=== PATIENT | female | born 1975 | race Caucasian/White ===

== ENCOUNTER 2018-03-18 13:38 | Emergency (ER) | payer MEDICAID, OTHER ==
[2016-05-15 08:53] VITALS: Wt 59.2 kg
[~2018-03-18 13:38] MED LIST: ACAM333T6 PO; ACE325 PO; ACET-2031 PO; AMI10 PO; ARIP2TAB9 PO; AZI250 PO; BENZ1 PO; CEP500 PO; CIP500 PO; CIPR250S2 PO; CITA-156 PO; CLA500 PO; CLI150 PO; CYC10 PO; CYCL10TA29 PO; DIA5 PO; DIC10 PO; DICL-192; DIPH-740 PO; DIV250 PO; DIVA250T83 PO; DOC100 PO; DOX100 PO; DOXE75CA PO; DOXY-179 PO; DOXY150T6 PO; DUL20 PO; DUL30 PO; DULO60CA51 PO; DULO60CA56 PO; DULO60CA7; FURO-1 PO; GAB300 PO; GABA-549 PO; HYD2 PO; HYDR-2946 PO; HYDR-3083 PO; HYDR-385; HYDR-385 PO; HYDR1LIQ PO; HYDR25CA PO; HYDR25CA84 PO; HYDR2TAB41 PO; HYDR2TAB42 PO; HYDRO25 PO; IBU600 PO; IBU800 PO; IBUP-1618 PO; IBUP600T22 PO; IBUP800T37 PO; KET10 PO; LEVO750T25 PO; LIB PO; LID5T TOP; LITH300C45 PO; LOR1 PO; LOR5 PO; LOR5/325 PO; LOR75 PO; LORA-1221 PO; MAG-156 PO; MAGIC; MAGIC PO; MEL3 PO; MELO-205; MELO-205 PO; MET800 PO; META400T PO; META800T18 PO; METH-278; METH4TAB57 PO; METHO500 PO; MOX400 PO; MULT-820 PO; MULT-865 PO; MULT1TAB54 PO; NAL50 PO; NAP250 PO; NAP500; NAP500 PO; NAPR-1043 PO; NAPR220C12 PO; NAPR500T31 PO; NAPROXIN; NICO4LOZ PO; NICO4LOZ35 BC; NIT100 PO; NITR-105 PO; NO CURRENT MEDS; NOR5/325 PO; OMEP-218 PO; OMEP40CA79 PO; OND4 PO; ONDA4TAB PO; ONDA8TAB94 PO; OXA600 PO; OXC300 PO; OXYC-689 PO; OXYC1TAB54 PO; OXYC5TAB65 PO; PAN40 PO; PANT40TA13 PO; PER; PER PO; PHEN100 PO; PHENA200 PO; POTA20TA85 PO; PRE20 PO; PRE5 PO; PRED-314 PO; PRED20TA6 PO; PRO25 PO; PROM-110 PO; PROM12.546 PO; RIS1 PO; RIZA10TA22 PO; SUMA50TA35; TIZ4 PO; TIZA-1; TIZA2CAP3 PO; TRA50 PO; TRAM-420 PO; TRAM-627 PO; TRAM100T22 PO; TRAM100T30 PO; TRAZ50TA34 PO; [UNRECOGNIZED DRUG - CODE] PO; [UNRECOGNIZED DRUG - CODE] TP
[2018-03-18] MEDS ORDERED: NS(*) 0.9% 1000 ML BAG 1,000 ML IV ONE (14:02)
[2018-03-18] MEDS ORDERED: KETOROLAC 30 MG/ML VIAL IVP ONE (14:05)
[2018-03-18] MEDS ORDERED: ONDANSETRON 4 MG/2 ML VIAL IVP ONE (14:05)
[2018-03-18] MEDS ORDERED: PHENAZOPYRIDINE 200 MG TAB PO ONE (14:05)
[2018-03-18 14:33] LABS: PLATELET COUNT, AUTOMATED 321 K/uL (150-450)
[2018-03-18] MEDS ORDERED: fentaNYL CITR 100 MCG/2 ML AMP IVP ONE ×2 (14:35→17:00)
[2018-03-18] MEDS ORDERED: IOPAMIDOL 76% 75 ML INFUS BTL 75 ML ONE (14:35)
--- NOTE | 2018-03-18 15:05 | ER Report ---
History and Physical Time Seen By MD: 14:56 Hx. of Stated Complaint: RIGHT FLANK/GROIN PAIN SINCE YESTERDAY. (KAY SORTO MD) HPI/ROS CHIEF COMPLAINT: Right flank and groin pain HISTORY OF PRESENT ILLNESS: Patient is a 42-year-old female who reports right- sided flank pain and groin pain and some suprapubic discomfort past 2 weeks that is episodic. Patient states this felt similar to her prior urinary tract infections. She had some medications at home and drink cranberry juice and took a Pyridium. Patient denies any vaginal discharge. She has had a hysterectomy and left oophorectomy. Patient denies any fevers or chills. Denies any abdominal trauma. REVIEW OF SYSTEMS: Constitutional: No fever, no chills. Eyes: No discharge. ENT: No sore throat. Cardiovascular: No chest pain, no palpitations. Respiratory: No cough, no shortness of breath. Gastrointestinal: Right-sided flank pain, right groin pain and suprapubic pain, nausea Genitourinary: No hematuria. Musculoskeletal: No back pain. Skin: No rashes. Neurological: No headache. (KAY SORTO MD) Allergies: Coded Allergies: Penicillins (Verified Allergy, Intermediate, FELT LIKE SKIN WAS ON FIRE, 03/18/18) Sulfa (Sulfonamide Antibiotics) (Verified Allergy, Intermediate, RED BLOTCHES, 03/18/18) Home Meds Active Scripts Hydrocodone Bit/Acetaminophen (HYDROCODON-ACETAMINOPHEN 5-325) 1 Each Tablet, 1 EACH PO Q4-6H PRN for PAIN, #10 TAB Prov:AZUCENAGUERASANDRA Denisse DO 03/18/18 Discontinued Reported Medications Nicotine Polacrilex (NICOTINE LOZENGE) 4 Mg Lozenge, 4 MG BC Q1-2H PRN for NICOTINE REPLACEMENT, LOZENGE 05/19/16 Multivitamin (DAILY MULTIPLE VITAMIN) 1 Each Tablet, 1 EACH PO DAILY 05/19/16 Trazodone Hcl (TRAZODONE HCL) 50 Mg Tablet, 50 MG PO QHS 05/19/16 Ibuprofen (IBUPROFEN) 600 Mg Tablet, 1 TAB PO Q6H, TAB 05/14/16 Duloxetine Hcl (Cymbalta) 60 Mg Capsule.dr, 60 MG PO DAILY, 0 Refills 10/04/12 Past Medical/Surgical History Noncontributory towards this chief complaint (KAY SORTO MD) Hx Smoking: Yes Smoking Status: Heavy Tobacco Smoker Exposure to Second Hand Smoke?: Yes Hx Substance Use Disorder: Yes (METH; WEED) Hx Alcohol Use: No (KAY SORTO MD) Constitutional Vital Sign - Last 24 Hours 03/18/18 13:50 Temp 98.7 Pulse 84 Resp 18 B/P (MAP) 150/92 Pulse Ox 95 O2 Delivery Room Air (LAURORA,SANDRA V DO) Physical Exam General Appearance: The patient is alert, has no immediate need for airway protection and no current signs of toxicity. Eyes: Pupils equal and round no injection. Respiratory: Chest is non tender, lungs are clear to auscultation. Cardiac: regular rate and rhythm Gastrointestinal: Abdomen is noted for tenderness in the right quadrant and groin area without mass. There is also right-sided CVA tenderness. Musculoskeletal: Neck: Neck is supple and non tender. Extremities have full range of motion and are non tender. Skin: No rashes or lesions. (KAY SORTO MD) Medical Decision Making Data Points Result Diagram: 03/18/18 1402 03/18/18 1402 Laboratory Hematology Test 03/18/18 13:47 03/18/18 14:02 Urine Color Yellow Urine Clarity Clear Urine pH 7.0 pH (4.8-9.5) Urine Specific [place] 1.014 Urine Protein Negative mg/dL (NEGATIVE) Urine Glucose (UA) Negative mg/dL (NEGATIVE) Urine Ketones Negative mg/dL (NEGATIVE) Urine Blood Negative (NEGATIVE) Urine Nitrite Negative (NEGATIVE) Urine Bilirubin Negative (NEGATIVE) Urine Urobilinogen Negative mg/dL (0.2-1.9) Urine Leukocyte Esterase Negative (NEGATIVE) Urine RBC 2 /HPF (0-2/HPF) Urine WBC 1 /HPF (0-5/HPF) Urine Squamous Epithelial Cells Many /LPF (</=FEW) Urine Bacteria Negative /HPF (NONE-FEW) Urine Mucus Few /HPF (NONE-FEW) Red Blood Count 4.86 M/uL (4.17-5.56) Mean Corpuscular Volume 94.0 fL (80.0-96.0) Mean Corpuscular Hemoglobin 32.0 pg (26.0-33.0) Mean Corpuscular Hemoglobin Concent 34.0 g/dL (32.0-36.0) Red Cell Distribution Width 13.6 % (11.5-14.5) Mean Platelet Volume 8.7 fL (7.2-11.1) Neutrophils (%) (Auto) 68.1 % (39.4-72.5) Lymphocytes (%) (Auto) 21.3 % (17.6-49.6) Monocytes (%) (Auto) 7.5 % (4.1-12.4) Eosinophils (%) (Auto) 1.8 % (0.4-6.7) Basophils (%) (Auto) 1.3 % (0.3-1.4) Nucleated RBC Relative Count (auto) 0.0 /100WBC Neutrophils # (Auto) 4.5 K/uL (2.0-7.4) Lymphocytes # (Auto) 1.4 K/uL (1.3-3.6) Monocytes # (Auto) 0.5 K/uL (0.3-1.0) Eosinophils # (Auto) 0.1 K/uL (0.0-0.5) Basophils # (Auto) 0.1 K/uL (0.0-0.1) Nucleated RBC Absolute Count (auto) 0.00 K/uL Sodium Level 140 mmol/L (137-145) Potassium Level 4.2 mmol/L (3.5-5.0) Chloride Level 107 mmol/L (98-107) Carbon Dioxide Level 22 mmol/L (22-31) Blood Urea Nitrogen 11 mg/dl (7-18) Creatinine 0.40 mg/dl (0.52-1.04) Glomerular Filtration Rate Calc > 60.0 Random Glucose 91 mg/dl (75-110) Calcium Level 8.8 mg/dl (8.4-10.2) Total Bilirubin 0.2 mg/dl (0.2-1.3) Aspartate Amino Transf (AST/SGOT) 58 U/L (0-35) Alanine Aminotransferase (ALT/SGPT) 47 U/L (0-56) Alkaline Phosphatase 67 U/L (0-126) Total Protein 6.7 g/dl (6.3-8.2) Albumin 4.1 g/dl (3.5-5.0) Chemistry Test 03/18/18 13:47 03/18/18 14:02 Urine Color Yellow Urine Clarity Clear Urine pH 7.0 pH (4.8-9.5) Urine Specific [place] 1.014 Urine Protein Negative mg/dL (NEGATIVE) Urine Glucose (UA) Negative mg/dL (NEGATIVE) Urine Ketones Negative mg/dL (NEGATIVE) Urine Blood Negative (NEGATIVE) Urine Nitrite Negative (NEGATIVE) Urine Bilirubin Negative (NEGATIVE) Urine Urobilinogen Negative mg/dL (0.2-1.9) Urine Leukocyte Esterase Negative (NEGATIVE) Urine RBC 2 /HPF (0-2/HPF) Urine WBC 1 /HPF (0-5/HPF) Urine Squamous Epithelial Cells Many /LPF (</=FEW) Urine Bacteria Negative /HPF (NONE-FEW) Urine Mucus Few /HPF (NONE-FEW) White Blood Count 6.5 k/uL (4.5-11.0) Red Blood Count 4.86 M/uL (4.17-5.56) Hemoglobin 15.5 g/dL (12.0-16.0) Hematocrit 45.7 % (34.0-47.0) Mean Corpuscular Volume 94.0 fL (80.0-96.0) Mean Corpuscular Hemoglobin 32.0 pg (26.0-33.0) Mean Corpuscular Hemoglobin Concent 34.0 g/dL (32.0-36.0) Red Cell Distribution Width 13.6 % (11.5-14.5) Platelet Count 321 K/uL (150-450) Mean Platelet Volume 8.7 fL (7.2-11.1) Neutrophils (%) (Auto) 68.1 % (39.4-72.5) Lymphocytes (%) (Auto) 21.3 % (17.6-49.6) Monocytes (%) (Auto) 7.5 % (4.1-12.4) Eosinophils (%) (Auto) 1.8 % (0.4-6.7) Basophils (%) (Auto) 1.3 % (0.3-1.4) Nucleated RBC Relative Count (auto) 0.0 /100WBC Neutrophils # (Auto) 4.5 K/uL (2.0-7.4) Lymphocytes # (Auto) 1.4 K/uL (1.3-3.6) Monocytes # (Auto) 0.5 K/uL (0.3-1.0) Eosinophils # (Auto) 0.1 K/uL (0.0-0.5) Basophils # (Auto) 0.1 K/uL (0.0-0.1) Nucleated RBC Absolute Count (auto) 0.00 K/uL Glomerular Filtration Rate Calc > 60.0 Calcium Level 8.8 mg/dl (8.4-10.2) Total Bilirubin 0.2 mg/dl (0.2-1.3) Aspartate Amino Transf (AST/SGOT) 58 U/L (0-35) Alanine Aminotransferase (ALT/SGPT) 47 U/L (0-56) Alkaline Phosphatase 67 U/L (0-126) Total Protein 6.7 g/dl (6.3-8.2) Albumin 4.1 g/dl (3.5-5.0) Urinalysis Test 03/18/18 13:47 Urine Color Yellow Urine Clarity Clear Urine pH 7.0 pH (4.8-9.5) Urine Specific [place] 1.014 Urine Protein Negative mg/dL (NEGATIVE) Urine Glucose (UA) Negative mg/dL (NEGATIVE) Urine Ketones Negative mg/dL (NEGATIVE) Urine Blood Negative (NEGATIVE) Urine Nitrite Negative (NEGATIVE) Urine Bilirubin Negative (NEGATIVE) Urine Urobilinogen Negative mg/dL (0.2-1.9) Urine Leukocyte Esterase Negative (NEGATIVE) Urine RBC 2 /HPF (0-2/HPF) Urine WBC 1 /HPF (0-5/HPF) Urine Squamous Epithelial Cells Many /LPF (</=FEW) Urine Bacteria Negative /HPF (NONE-FEW) Urine Mucus Few /HPF (NONE-FEW) (SANDRA ORTEZ DO) ED Course/Re-evaluation ED Course 03/18/2018 3:02:47 pm symptoms sound similar to urinary tract infection possibly pyelonephritis. Urinalysis was clear. Patient with persistent pain. We will obtain CT scan of the abdomen and pelvis with IV contrast to look for pathology. Patient does have a treatment plan although has not had an ER visit since 2016. My clinical judgment at this time that the patient does potentially have an acute process, we'll give a dose of IV fentanyl and this time disposition pending study. Decision to Disposition Date: Mar 18, 2018 Decision to Disposition Time: 18:00 (KAY SORTO MD) ED Course 03/18/2018 5:00:08 pm Signed out to me pending CT. Pts Ct shows r ovarian cyst. Pts pain was improved with toradol and fentanyl but it is coming back. will remedicate. Decision to Disposition Date: Mar 18, 2018 Decision to Disposition Time: 17:01 (SANDRA ORTEZ DO) Depart Departure Latest Vital Signs Vital Signs Date Time Temp Pulse Resp B/P (MAP) Pulse Ox O2 Delivery O2 Flow Rate FiO2 03/18/18 13:50 98.7 84 18 150/92 95 Room Air (SANDRA ORTEZ DO) Impression: Primary Impression: Ovarian cyst Condition: Improved Disposition: HOME OR SELF-CARE New Scripts Hydrocodone Bit/Acetaminophen (HYDROCODON-ACETAMINOPHEN 5-325) 1 Each Tablet 1 EACH PO Q4-6H PRN for PAIN, #10 TAB Prov: SANDRA ORTEZ DO 03/18/18 Patient Instructions: Ovarian Cyst (DC) Additional Instructions: Your Cat scan today shows a right collapsing ovarian cyst as a possible cause of your pain. Your initial urine appears clean. We did send urine cultures. Motrin (advil, ibuprofen) 400mg every 6 hours as needed for discomfort. Hydrocodone with tylenol one every 6 hours for severe pain (may take with motrin). Problem Qualifiers Primary Impression: Ovarian cyst Laterality: right Qualified Codes: N83.201 - Unspecified ovarian cyst, right side KAY SORTO MD Mar 18, 2018 15:05 SANDRA ORTEZ DO Mar 18, 2018 17:05
--- NOTE | 2018-03-18 16:41 | RADIOLOGY IMAGING REPORT ---
FACILITY: [facility] - [place] PATIENT NAME: Terra Gomez : 1975 MR: [id number] V: [id number] EXAM DATE: ORDERING PHYSICIAN: KAY SORTO TECHNOLOGIST: Location: [facility] [place] Patient: Terra Gomez : 1975 Visit/Account:[id number] Date of Sevice: 03/18/2018 CT abdomen and pelvis with IV contrast Indication: Right lower abdominal pain. Comparison: 07/21/2012.. Technique: Axial CT images were obtained through the abdomen and pelvis during injection of nonioni c iodinated intravenous contrast. Reformatted coronal and sagittal images were also obtained. One of the following dose optimization techniques was utilized in the performance of this exam: Autom ated exposure control; adjustment of the mA and/or kV according to the patient's size; or use of an i terative reconstruction technique. Specific details can be referenced in the facility's radiology C T exam operational policy. Contrast: 75 ml of Isovue-370 IV contrast. Findings: Lower lung arzate: Limited views lower lung field are unremarkable. Liver: No focal parenchymal abnormality of the liver. Biliary: Gallbladder appears unremarkable as well as the intra and extra hepatic biliary system. Pancreas: Normal appearance. Spleen: Normal appearance. Adrenal glands: Unremarkable. Kidneys / retroperitoneum: No evidence of nephrolithiasis or hydronephrosis. No focal abnormality. Bowel / peritoneum / mesenteries: Visualized gastrointestinal tract, including the appendix, within n ormal limits. Lymph node assessment: No pathologic adenopathy identified. Pelvic structures: Status post hysterectomy. The right ovary appears to be present and does show a small collapsing 1.1 cm cyst. Left ovary is not readily identified. The remaining pelvic structures visualized within normal limits. Vessels: No significant atherosclerotic calcifications seen throughout a nonaneurysmal abdominal aort a and branches. Musculoskeletal / Body wall: No acute or aggressive osseous abnormality. Degenerative changes in lowe r lumbar spine. IMPRESSION: 1. The appendix is normal. 2. The right ovary appears to be present. There does appear to be a collapsing 1.1 cm right ovarian c yst. Report Dictated By: Bartolo Ayala at 03/18/2018 4:30 PM Report E-Signed By: Bartolo Ayala at 03/18/2018 4:36 PM WSN:[id number]
[2018-03-18 17:00] VITALS: BP 147/84
[2018-03-18] MEDS ORDERED: LOR5/325 PO (17:03)
== END 2018-03-18 17:11 | disposition home or self-care (01) ==
LOC: ER 13:41
DX: N83.201 Unspecified ovarian cyst, right side (principal)
CPT/HCPCS: 74177; 81001; 85025; 87088; 87491; 87591; 96374; 96375; 96376; 99284; J1885; J2405; J3010; Q9967; 82040; 82247; 82310; 82374; 82435; 82565; 82947; 84075; 84132; 84155; 84295; 84450; 84460; 84520

== ENCOUNTER 2018-04-24 11:44 | Emergency (ER) | payer MEDICAID ==
[2016-05-15 08:53] VITALS: Wt 59.2 kg
--- NOTE | 2018-04-24 12:03 | ER Report ---
History and Physical Time Seen By MD: 12:03 HPI/ROS CHIEF COMPLAINT: Right shoulder and epigastric pain HISTORY OF PRESENT ILLNESS: This is a 42-year-old female presents to the emergency department for right shoulder and epigastric pain. Patient states that 2 days ago her large [place] jumped up on her and injured her right shoulder and stepped on her epigastrium. Patient states that since then she's been trying some homeopathic home remedies which have not helped with the discomfort. Patient states she does have a history of IBS. Patient denies any unusual stooling for her. No numbness or tingling to the right upper extremity. Decreased mobility secondary to pain. No nausea or vomiting at this time. No fevers or chills. No chest pain or shortness of breath. REVIEW OF SYSTEMS: Constitutional: No fever, no chills. Eyes: No discharge. ENT: No sore throat. Cardiovascular: No chest pain, no palpitations. Respiratory: No cough, no shortness of breath. Gastrointestinal: As above. Genitourinary: No hematuria. Musculoskeletal: As above. Skin: No rashes. Neurological: No headache. Allergies: Coded Allergies: Penicillins (Verified Allergy, Intermediate, FELT LIKE SKIN WAS ON FIRE, 03/18/18) Sulfa (Sulfonamide Antibiotics) (Verified Allergy, Intermediate, RED BLOTCHES, 03/18/18) Home Meds Active Scripts Cyclobenzaprine Hcl (CYCLOBENZAPRINE HCL) 10 Mg Tablet, 5-10 MG PO TID PRN for MUSCLE SPASMS, #9 TAB Prov:LEDY HOWARD [employer] 04/24/18 Hydrocodone Bit/Acetaminophen (HYDROCODON-ACETAMINOPHEN 5-325) 1 Each Tablet, 1 EACH PO Q4-6H PRN for PAIN, #10 TAB Prov:SANDRA ORTEZ DO 03/18/18 Past Medical/Surgical History The patient has a past medical and surgical history of migraines, seizures, arrhythmias, anxiety, occasionally has irregular heartbeat secondary to stress, IBS, area tract infections, ovarian cysts, degenerative disc disease of the cervical spine, arthritis, ankle fracture, chronic low back pain, sciatica, bulging disks, wears glasses, hard of hearing, hypoglycemia, lupus, rash or lupus, meth use, marijuana use, anxiety, PTSD, borderline personality, partial hysterectomy, cystography, hysterectomy, tubal ligation. Reviewed Nurses Notes: Yes Hx Smoking: Yes Smoking Status: Heavy Tobacco Smoker Exposure to Second Hand Smoke?: Yes Hx Substance Use Disorder: Yes (METH; WEED) Hx Alcohol Use: No Constitutional Vital Sign - Last 24 Hours 04/24/18 04/24/18 04/24/18 04/24/18 11:44 11:59 12:02 12:02 Temp 98.3 Pulse ? 90 Resp 18 B/P (MAP) 117/81 117/81 (93) Pulse Ox 91 O2 Delivery Room Air 04/24/18 04/24/18 04/24/18 04/24/18 12:14 12:29 12:32 12:44 Pulse 87 89 79 Resp 10 13 25 B/P (MAP) 115/70 (85) Pulse Ox 96 99 93 04/24/18 04/24/18 04/24/18 04/24/18 12:59 13:14 13:29 13:34 Pulse 79 ? Resp 36 Pulse Ox 93 04/24/18 04/24/18 04/24/18 04/24/18 13:49 14:00 14:04 14:19 Pulse ? B/P (MAP) ???/??? (1665) 04/24/18 04/24/18 04/24/18 14:29 14:34 14:36 Pulse 74 B/P (MAP) 81/70 (74) 98/67 (77) Pulse Ox 91 Physical Exam General Appearance: The patient is alert, has no immediate need for airway protection and no signs of toxicity. Eyes: Pupils equal and round no pallor or injection. ENT, Mouth: Mucous membranes are moist. Respiratory: There are no retractions, lungs are clear to auscultation. Cardiovascular: Regular rate and rhythm, no murmurs, clicks or rubs. Gastrointestinal: Abdomen is soft, epigastric discomfort with palpation and percussion, right upper quadrant pain with palpation, + Mcrae sign. no masses, bowel sounds normal. Neurological: Alert and oriented 4. Moving all cavities. Following all commands. No focal neuro deficits. Skin: Warm and dry, no rashes. Musculoskeletal: Neck is supple non tender. Extremities right anterior shoulder discomfort with palpation, no crepitus or obvious deformities. Increased pain with abduction pain with scarf test and Hinds test. DIFFERENTIAL DIAGNOSIS: After history and physical exam differential diagnosis was considered for abdominal pain including but not limited to appendicitis, cholecystitis, gastritis and urinary tract infection, right shoulder separation, contusion and dislocation. Medical Decision Making Data Points Result Diagram: 04/24/18 1230 04/24/18 1230 Laboratory Hematology Test 04/24/18 12:30 Red Blood Count 5.16 M/uL (4.17-5.56) Mean Corpuscular Volume 94.7 fL (80.0-96.0) Mean Corpuscular Hemoglobin 31.9 pg (26.0-33.0) Mean Corpuscular Hemoglobin Concent 33.7 g/dL (32.0-36.0) Red Cell Distribution Width 13.9 % (11.5-14.5) Mean Platelet Volume 8.2 fL (7.2-11.1) Neutrophils (%) (Auto) 67.6 % (39.4-72.5) Lymphocytes (%) (Auto) 22.7 % (17.6-49.6) Monocytes (%) (Auto) 6.8 % (4.1-12.4) Eosinophils (%) (Auto) 2.0 % (0.4-6.7) Basophils (%) (Auto) 0.9 % (0.3-1.4) Nucleated RBC Relative Count (auto) 0.0 /100WBC Neutrophils # (Auto) 5.4 K/uL (2.0-7.4) Lymphocytes # (Auto) 1.8 K/uL (1.3-3.6) Monocytes # (Auto) 0.5 K/uL (0.3-1.0) Eosinophils # (Auto) 0.2 K/uL (0.0-0.5) Basophils # (Auto) 0.1 K/uL (0.0-0.1) Nucleated RBC Absolute Count (auto) 0.00 K/uL Sodium Level 140 mmol/L (137-145) Potassium Level 4.1 mmol/L (3.5-5.0) Chloride Level 103 mmol/L (98-107) Carbon Dioxide Level 25 mmol/L (22-31) Blood Urea Nitrogen 9 mg/dl (7-18) Creatinine 0.50 mg/dl (0.52-1.04) Glomerular Filtration Rate Calc > 60.0 Random Glucose 82 mg/dl (75-110) Calcium Level 9.5 mg/dl (8.4-10.2) Total Bilirubin 0.4 mg/dl (0.2-1.3) Aspartate Amino Transf (AST/SGOT) 23 U/L (0-35) Alanine Aminotransferase (ALT/SGPT) 36 U/L (0-56) Alkaline Phosphatase 68 U/L (0-126) Total Protein 7.4 g/dl (6.3-8.2) Albumin 4.5 g/dl (3.5-5.0) Lipase 158 U/L (23-300) Chemistry Test 04/24/18 12:30 White Blood Count 8.0 k/uL (4.5-11.0) Red Blood Count 5.16 M/uL (4.17-5.56) Hemoglobin 16.4 g/dL (12.0-16.0) Hematocrit 48.8 % (34.0-47.0) Mean Corpuscular Volume 94.7 fL (80.0-96.0) Mean Corpuscular Hemoglobin 31.9 pg (26.0-33.0) Mean Corpuscular Hemoglobin Concent 33.7 g/dL (32.0-36.0) Red Cell Distribution Width 13.9 % (11.5-14.5) Platelet Count 307 K/uL (150-450) Mean Platelet Volume 8.2 fL (7.2-11.1) Neutrophils (%) (Auto) 67.6 % (39.4-72.5) Lymphocytes (%) (Auto) 22.7 % (17.6-49.6) Monocytes (%) (Auto) 6.8 % (4.1-12.4) Eosinophils (%) (Auto) 2.0 % (0.4-6.7) Basophils (%) (Auto) 0.9 % (0.3-1.4) Nucleated RBC Relative Count (auto) 0.0 /100WBC Neutrophils # (Auto) 5.4 K/uL (2.0-7.4) Lymphocytes # (Auto) 1.8 K/uL (1.3-3.6) Monocytes # (Auto) 0.5 K/uL (0.3-1.0) Eosinophils # (Auto) 0.2 K/uL (0.0-0.5) Basophils # (Auto) 0.1 K/uL (0.0-0.1) Nucleated RBC Absolute Count (auto) 0.00 K/uL Glomerular Filtration Rate Calc > 60.0 Calcium Level 9.5 mg/dl (8.4-10.2) Total Bilirubin 0.4 mg/dl (0.2-1.3) Aspartate Amino Transf (AST/SGOT) 23 U/L (0-35) Alanine Aminotransferase (ALT/SGPT) 36 U/L (0-56) Alkaline Phosphatase 68 U/L (0-126) Total Protein 7.4 g/dl (6.3-8.2) Albumin 4.5 g/dl (3.5-5.0) Lipase 158 U/L (23-300) EKG/Imaging Imaging EXAMINATION: Right upper quadrant abdominal ultrasound HISTORY: Right upper quadrant pain. COMPARISON: None. FINDINGS: Liver: Normal hepatic echotexture. No focal liver lesions identified. An tegrade flow is visualized in the main portal vein. Gallbladder: Normal sonographic appearance of the gallbladder, without evidence of stones or sludge. No gallbladder wall thickening or pericholecystic fluid. Negative sonographic Mcrae sign. Bile Ducts: No biliary ductal dilatation. The common duct measures 4 mm. Pancreas: The head and body of the pancreas are moderately well visualized and unremarkable where seen. Right kidney: Normal echogenicity of the right kidney. The renal cortical parenchyma is maintained. No hydronephrosis. The right kidney measures 10.4 cm in length. Aorta: Patent and normal in caliber. IVC: Patent. Ascites: None. IMPRESSION: Unremarkable right upper quadrant abdominal ultrasound. Report Dictated By: Ady Mckay MD at 04/24/2018 2:05 PM Report E-Signed By: Ady Mckay MD at 04/24/2018 2:07 PM WSN:[id number] Location: [facility] Patient: Terra Gomez : 1975 Visit/Account:[id number] Date of Sevice: 04/24/2018 Technique: SHOULDER MIN 2 VIEWS RIGHT HISTORY: right shoulder pain Comparison studies: None FINDINGS: There is no acute fracture. The alignment of the right shoulder is maintained. Soft tissues are unremarkable. IMPRESSION: 1. No acute osseous process. Report Dictated By: Sohail Wayne DO at 04/24/2018 1:36 PM Report E-Signed By: Sohail Wayne DO at 04/24/2018 1:37 PM WSN:[id number] ED Course/Re-evaluation Clinical Indication for ER IV: IV Access ED Course The patient was admitted to room. A history and physical obtained. Differential diagnoses were considered. An IV was started. A CBC, CMP and lipase were obtained. Hemoglobin and hematocrit 16.4 and 48.8, otherwise laboratory studies unremarkable. A lipase. An x-ray of the right shoulder was negative for any acute abnormalities. Negative gallbladder ultrasound. Patient was given 4 mg IV Zofran, 30 mg IV Toradol, 30 mg IV Norflex. Patient was also given a GI cocktail. I did review the imaging results with the patient. I also recommended patient follow-up with [facility] have her shoulder reevaluated. Patient was placed in a sling. Patient was given a prescription for Flexeril. Patient states that she feels much better after the Toradol and Norflex. I did tell patient that the epigastric discomfort that she is having is likely due to the dog stepping on her epigastrium. The patient had no other questions or concerns at this time and was discharged home. Decision to Disposition Date: Apr 24, 2018 Decision to Disposition Time: 14:33 Depart Departure Latest Vital Signs Vital Signs Date Time Temp Pulse Resp B/P (MAP) Pulse Ox O2 Delivery O2 Flow Rate FiO2 04/24/18 14:36 98/67 (77) 04/24/18 14:34 74 91 04/24/18 12:59 36 04/24/18 12:02 98.3 Room Air Impression: Primary Impression: Epigastric pain Additional Impression: Right shoulder pain Condition: Improved Disposition: HOME OR SELF-CARE Referrals: WARD DE LA TORRE MD 1 Week New Scripts Cyclobenzaprine Hcl (CYCLOBENZAPRINE HCL) 10 Mg Tablet 5-10 MG PO TID PRN for MUSCLE SPASMS, #9 TAB Prov: LEDY HOWARD Anne-Marie [employer] 04/24/18 Patient Instructions: Epigastric Pain (ED), Shoulder Pain (ED) Additional Instructions: Please follow up with [facility] within 1 week for reevaluation of the right shoulder. Take the Flexeril for muscle spasms and pain relief. You can try ibuprofen or Tylenol as needed for pain. Follow-up with your primary care provider as scheduled. Drink plenty of water. Get plenty of rest. Return to the emergency department for any other concerns or worsening symptoms. Problem Qualifiers Additional Impression: Right shoulder pain Chronicity: acute Qualified Codes: M25.511 - Pain in right shoulder LEDY HOWARD-PEREZ Apr 24, 2018 12:03
[2018-04-24] MEDS ORDERED: ONDANSETRON 4 MG/2 ML VIAL IVP ONE (12:20)
[2018-04-24] MEDS ORDERED: KETOROLAC 30 MG/ML VIAL IVP ONE (12:20)
[2018-04-24] MEDS ORDERED: MAG HYD/AL HYD/SIMETH 30ML UDC PO ONE (12:20)
[2018-04-24] MEDS ORDERED: LIDOCAINE 2% VISC SLN 15ML UDC PO ONE (12:20)
[2018-04-24 12:43] LABS: PLATELET COUNT, AUTOMATED 307 K/uL (150-450)
--- NOTE | 2018-04-24 13:41 | RADIOLOGY IMAGING REPORT ---
FACILITY: [facility] [place] PATIENT NAME: Terra Gomez : 1975 MR: [id number] V: [id number] EXAM DATE: ORDERING PHYSICIAN: LEDY HOWARD TECHNOLOGIST: Location: [facility] - [place] Patient: Terra Gomez : 1975 Visit/Account:[id number] Date of Sevice: 04/24/2018 Technique: SHOULDER MIN 2 VIEWS RIGHT HISTORY: right shoulder pain Comparison studies: None FINDINGS: There is no acute fracture. The alignment of the right shoulder is maintained. Soft tissues are unremarkable. IMPRESSION: 1. No acute osseous process. Report Dictated By: Sohail Wayne DO at 04/24/2018 1:36 PM Report E-Signed By: Sohail Wayne DO at 04/24/2018 1:37 PM WSN:[id number]
--- NOTE | 2018-04-24 14:11 | RADIOLOGY IMAGING REPORT ---
FACILITY: [facility] PATIENT NAME: Terra Gomez : 1975 MR: [id number] V: [id number] EXAM DATE: ORDERING PHYSICIAN: LEDY HOWARD TECHNOLOGIST: Location: [facility] - [place] Patient: Terra Gomez : 1975 Visit/Account:[id number] Date of Sevice: 04/24/2018 EXAMINATION: Right upper quadrant abdominal ultrasound HISTORY: Right upper quadrant pain. COMPARISON: None. FINDINGS: Liver: Normal hepatic echotexture. No focal liver lesions identified. Antegrade flow is visualized in the main portal vein. Gallbladder: Normal sonographic appearance of the gallbladder, without evidence of stones or sludge. No gallbladder wall thickening or pericholecystic fluid. Negative sonographic Mcrae sign. Bile Ducts: No biliary ductal dilatation. The common duct measures 4 mm. Pancreas: The head and body of the pancreas are moderately well visualized and unremarkable where se en. Right kidney: Normal echogenicity of the right kidney. The renal cortical parenchyma is maintained. N o hydronephrosis. The right kidney measures 10.4 cm in length. Aorta: Patent and normal in caliber. IVC: Patent. Ascites: None. IMPRESSION: Unremarkable right upper quadrant abdominal ultrasound. Report Dictated By: Ady Mckay MD at 04/24/2018 2:05 PM Report E-Signed By: Ady Mckay MD at 04/24/2018 2:07 PM WSN:[email or web address]
[2018-04-24] MEDS ORDERED: ORPHENADRINE 60MG/2ML INJ IVP ONE (14:20)
[2018-04-24] MEDS ORDERED: CYCL10TA29 PO (14:34)
[2018-04-24 14:36] VITALS: BP 98/67
== END 2018-04-24 14:48 | disposition home or self-care (01) ==
LOC: ER 12:04
DX: R10.13 Epigastric pain (principal); M25.511 Pain in right shoulder
CPT/HCPCS: 73030; 76705; 83690; 85025; 96374; 96375; 99284; A4565; J1885; J2360; J2405; 82040; 82247; 82310; 82374; 82435; 82565; 82947; 84075; 84132; 84155; 84295; 84450; 84460; 84520

== ENCOUNTER 2018-07-07 13:07 | Emergency (ER) | payer MEDICAID ==
[2016-05-15 08:53] VITALS: Wt 59.0 kg
[2018-07-07] MEDS ORDERED: DULO60CA56 PO (13:18)
[2018-07-07] MEDS ORDERED: NS(*) 0.9% 1000 ML BAG 1,000 ML IV ONE (13:22)
[2018-07-07] MEDS ORDERED: ONDANSETRON 4 MG/2 ML VIAL IVP ONE (13:25)
[2018-07-07] MEDS ORDERED: FAMOTIDINE(*) 20MG/50ML PREMIX 50 ML IVPB ONE (13:25)
[2018-07-07] MEDS ORDERED: GI COCKTAIL 60 ML BTL PO PRN (13:25)
--- NOTE | 2018-07-07 13:28 | ER Report ---
History and Physical Time Seen By MD: 13:26 Hx. of Stated Complaint: ABD PAIN HPI/ROS CHIEF COMPLAINT: Epigastric pain HISTORY OF PRESENT ILLNESS: 42-year-old female comes emergency from today with a complaint of epigastric pain since been episodic for the last couple of months but worse in the last couple days. Patient states she is a known history of gastric ulcers and she said that normally she doesn't home remedy which helps however the last couple days it has not. Patient states the pain is localized to the epigastrium with no radiation to the back across epigastrium nausea without vomiting no diarrhea. Patient is currently on a care plan due to excessive narcotic use and abuse. Patient denies any chest pain shortness of breath fever chills or additional complaints noted. Patient states the pain is made worse with food and when she lays flat. REVIEW OF SYSTEMS: Respiratory: No cough, no dyspnea. Cardiovascular: No chest pain, no palpitations. Gastrointestinal: Abdominal pain epigastric no vomiting or diarrhea Musculoskeletal: No back pain. Remainder of the 14 system rev: Yes Allergies: Coded Allergies: Penicillins (Verified Allergy, Intermediate, FELT LIKE SKIN WAS ON FIRE, 07/07/18) Sulfa (Sulfonamide Antibiotics) (Verified Allergy, Intermediate, RED BLOTCHES, 07/07/18) Home Meds Active Scripts Cyclobenzaprine Hcl (CYCLOBENZAPRINE HCL) 10 Mg Tablet, 5-10 MG PO TID PRN for MUSCLE SPASMS, #9 TAB Prov:LEDY HOWARD LINUX SYSTEM ADMINISTRATOR-BC 04/24/18 Hydrocodone Bit/Acetaminophen (HYDROCODON-ACETAMINOPHEN 5-325) 1 Each Tablet, 1 EACH PO Q4-6H PRN for PAIN, #10 TAB Prov:SANDRA ORTEZ DO 03/18/18 Reported Medications Duloxetine Hcl (CYMBALTA) 60 Mg Capsule.dr, 60 MG PO HS, #5 CAP 07/07/18 Reviewed Nurses Notes: Yes Old Medical Records Reviewed: Yes Hx Smoking: Yes Smoking Status: Heavy Tobacco Smoker Exposure to Second Hand Smoke?: Yes Hx Substance Use Disorder: Yes (METH; WEED NO LONGER USING) Hx Alcohol Use: No Constitutional Vital Sign - Last 24 Hours 07/07/18 07/07/18 07/07/18 07/07/18 13:07 13:13 13:15 13:36 Temp 98.2 Pulse 78 86 Resp 18 B/P (MAP) 122/84 (97) 122/84 109/70 (83) Pulse Ox 93 97 O2 Delivery Room Air 07/07/18 07/07/18 07/07/18 13:37 14:12 14:30 Pulse 75 76 B/P (MAP) 125/86 (99) Pulse Ox 92 89 Physical Exam General Appearance: [The patient is alert, has no immediate need for airway protection and no current signs of toxicity.] [ ] Eyes: Pupils equal and round no injection. Respiratory: Chest is non tender, lungs are clear to auscultation. Cardiac: regular rate and rhythm [ ] Gastrointestinal: Abdomen tenderness to even mild palpation epigastrium some tenderness to lower palpation no rebound guarding or masses normal bowel sounds Musculoskeletal: Neck: Neck is supple and non tender. Extremities have full range of motion and are non tender. Skin: No rashes or lesions. [ ] DIFFERENTIAL DIAGNOSIS: After history and physical exam differential diagnosis was considered for gastritis and gastroenteritis peptic ulcer disease Medical Decision Making Data Points Result Diagram: 07/07/18 1327 07/07/18 1327 Laboratory Hematology Test 07/07/18 13:27 07/07/18 13:38 Red Blood Count 4.97 M/uL (4.17-5.56) Mean Corpuscular Volume 94.3 fL (80.0-96.0) Mean Corpuscular Hemoglobin 32.1 pg (26.0-33.0) Mean Corpuscular Hemoglobin Concent 34.0 g/dL (32.0-36.0) Red Cell Distribution Width 13.6 % (11.5-14.5) Mean Platelet Volume 8.2 fL (7.2-11.1) Neutrophils (%) (Auto) 65.7 % (39.4-72.5) Lymphocytes (%) (Auto) 24.0 % (17.6-49.6) Monocytes (%) (Auto) 7.8 % (4.1-12.4) Eosinophils (%) (Auto) 1.0 % (0.4-6.7) Basophils (%) (Auto) 1.5 % (0.3-1.4) Nucleated RBC Relative Count (auto) 0.0 /100WBC Neutrophils # (Auto) 4.6 K/uL (2.0-7.4) Lymphocytes # (Auto) 1.7 K/uL (1.3-3.6) Monocytes # (Auto) 0.6 K/uL (0.3-1.0) Eosinophils # (Auto) 0.1 K/uL (0.0-0.5) Basophils # (Auto) 0.1 K/uL (0.0-0.1) Nucleated RBC Absolute Count (auto) 0.00 K/uL Prothrombin Time 12.6 seconds (12.0-14.4) Prothromb Time International Ratio 0.94 Activated Partial Thromboplast Time 33 seconds (23-35) Sodium Level 138 mmol/L (137-145) Potassium Level 4.1 mmol/L (3.5-5.0) Chloride Level 106 mmol/L (98-107) Carbon Dioxide Level 22 mmol/L (22-31) Blood Urea Nitrogen 10 mg/dl (7-18) Creatinine 0.50 mg/dl (0.52-1.04) Glomerular Filtration Rate Calc > 60.0 Random Glucose 94 mg/dl (75-110) Calcium Level 9.0 mg/dl (8.4-10.2) Total Bilirubin 0.7 mg/dl (0.2-1.3) Aspartate Amino Transf (AST/SGOT) 21 U/L (0-35) Alanine Aminotransferase (ALT/SGPT) 20 U/L (0-56) Alkaline Phosphatase 69 U/L (0-126) Total Protein 7.0 g/dl (6.3-8.2) Albumin 4.5 g/dl (3.5-5.0) Lipase 122 U/L (23-300) Serum Alcohol < 10 mg/dl Urine Color Yellow Urine Clarity Clear Urine pH 6.0 pH (4.8-9.5) Urine Specific Sherrill 1.017 Urine Protein Negative mg/dL (NEGATIVE) Urine Glucose (UA) Negative mg/dL (NEGATIVE) Urine Ketones Negative mg/dL (NEGATIVE) Urine Blood Moderate (NEGATIVE) Urine Nitrite Negative (NEGATIVE) Urine Bilirubin Negative (NEGATIVE) Urine Urobilinogen Negative mg/dL (0.2-1.9) Urine Leukocyte Esterase Negative (NEGATIVE) Urine RBC 6 /HPF (0-2/HPF) Urine WBC <1 /HPF (0-5/HPF) Urine Squamous Epithelial Cells Many /LPF (</=FEW) Urine Bacteria Negative /HPF (NONE-FEW) Urine Mucus Few /HPF (NONE-FEW) Urine Opiates Screen Positive Urine Barbiturates Screen Negative Ur Tricyclic Antidepressants Screen Negative Urine Phencyclidine Screen Negative Urine Amphetamines Screen Negative Urine Benzodiazepines Screen Negative Urine Cocaine Screen Negative Urine Cannabinoids Screen Negative Chemistry Test 07/07/18 13:27 07/07/18 13:38 White Blood Count 7.0 k/uL (4.5-11.0) Red Blood Count 4.97 M/uL (4.17-5.56) Hemoglobin 15.9 g/dL (12.0-16.0) Hematocrit 46.9 % (34.0-47.0) Mean Corpuscular Volume 94.3 fL (80.0-96.0) Mean Corpuscular Hemoglobin 32.1 pg (26.0-33.0) Mean Corpuscular Hemoglobin Concent 34.0 g/dL (32.0-36.0) Red Cell Distribution Width 13.6 % (11.5-14.5) Platelet Count 295 K/uL (150-450) Mean Platelet Volume 8.2 fL (7.2-11.1) Neutrophils (%) (Auto) 65.7 % (39.4-72.5) Lymphocytes (%) (Auto) 24.0 % (17.6-49.6) Monocytes (%) (Auto) 7.8 % (4.1-12.4) Eosinophils (%) (Auto) 1.0 % (0.4-6.7) Basophils (%) (Auto) 1.5 % (0.3-1.4) Nucleated RBC Relative Count (auto) 0.0 /100WBC Neutrophils # (Auto) 4.6 K/uL (2.0-7.4) Lymphocytes # (Auto) 1.7 K/uL (1.3-3.6) Monocytes # (Auto) 0.6 K/uL (0.3-1.0) Eosinophils # (Auto) 0.1 K/uL (0.0-0.5) Basophils # (Auto) 0.1 K/uL (0.0-0.1) Nucleated RBC Absolute Count (auto) 0.00 K/uL Prothrombin Time 12.6 seconds (12.0-14.4) Prothromb Time International Ratio 0.94 Activated Partial Thromboplast Time 33 seconds (23-35) Glomerular Filtration Rate Calc > 60.0 Calcium Level 9.0 mg/dl (8.4-10.2) Total Bilirubin 0.7 mg/dl (0.2-1.3) Aspartate Amino Transf (AST/SGOT) 21 U/L (0-35) Alanine Aminotransferase (ALT/SGPT) 20 U/L (0-56) Alkaline Phosphatase 69 U/L (0-126) Total Protein 7.0 g/dl (6.3-8.2) Albumin 4.5 g/dl (3.5-5.0) Lipase 122 U/L (23-300) Serum Alcohol < 10 mg/dl Urine Color Yellow Urine Clarity Clear Urine pH 6.0 pH (4.8-9.5) Urine Specific Sherrill 1.017 Urine Protein Negative mg/dL (NEGATIVE) Urine Glucose (UA) Negative mg/dL (NEGATIVE) Urine Ketones Negative mg/dL (NEGATIVE) Urine Blood Moderate (NEGATIVE) Urine Nitrite Negative (NEGATIVE) Urine Bilirubin Negative (NEGATIVE) Urine Urobilinogen Negative mg/dL (0.2-1.9) Urine Leukocyte Esterase Negative (NEGATIVE) Urine RBC 6 /HPF (0-2/HPF) Urine WBC <1 /HPF (0-5/HPF) Urine Squamous Epithelial Cells Many /LPF (</=FEW) Urine Bacteria Negative /HPF (NONE-FEW) Urine Mucus Few /HPF (NONE-FEW) Urine Opiates Screen Positive Urine Barbiturates Screen Negative Ur Tricyclic Antidepressants Screen Negative Urine Phencyclidine Screen Negative Urine Amphetamines Screen Negative Urine Benzodiazepines Screen Negative Urine Cocaine Screen Negative Urine Cannabinoids Screen Negative Coagulation Test 07/07/18 13:27 Prothrombin Time 12.6 seconds Prothromb Time International Ratio 0.94 Activated Partial Thromboplast Time 33 seconds Toxicology Test 07/07/18 13:27 07/07/18 13:38 Serum Alcohol < 10 mg/dl Urine Opiates Screen Positive Urine Barbiturates Screen Negative Ur Tricyclic Antidepressants Screen Negative Urine Phencyclidine Screen Negative Urine Amphetamines Screen Negative Urine Benzodiazepines Screen Negative Urine Cocaine Screen Negative Urine Cannabinoids Screen Negative Urinalysis Test 07/07/18 13:38 Urine Color Yellow Urine Clarity Clear Urine pH 6.0 pH (4.8-9.5) Urine Specific Sherrill 1.017 Urine Protein Negative mg/dL (NEGATIVE) Urine Glucose (UA) Negative mg/dL (NEGATIVE) Urine Ketones Negative mg/dL (NEGATIVE) Urine Blood Moderate (NEGATIVE) Urine Nitrite Negative (NEGATIVE) Urine Bilirubin Negative (NEGATIVE) Urine Urobilinogen Negative mg/dL (0.2-1.9) Urine Leukocyte Esterase Negative (NEGATIVE) Urine RBC 6 /HPF (0-2/HPF) Urine WBC <1 /HPF (0-5/HPF) Urine Squamous Epithelial Cells Many /LPF (</=FEW) Urine Bacteria Negative /HPF (NONE-FEW) Urine Mucus Few /HPF (NONE-FEW) ED Course/Re-evaluation ED Course ED course medical decision making 42-year-old female a care plan comes in with epigastric pain patient and labs including lipase were all negative ultrasound showed nothing abnormal otherwise her labs are completely unremarkable patient was positive for opioids unclear of this was obtained patient received IV pain medication in the form of Protonix and a GI cocktail with some benefit but still discomfort I believe she needs to be scoped and upper GI referred to general surgery prescribe her PPIs for her discomfort was not given narcotics to her care plan and have her follow-up accordingly with a general surgeon diagnoses B gastritis Decision to Disposition Date: Jul 07, 2018 Decision to Disposition Time: 14:43 Depart Departure Latest Vital Signs Vital Signs Date Time Temp Pulse Resp B/P (MAP) Pulse Ox O2 Delivery O2 Flow Rate FiO2 07/07/18 14:30 125/86 (99) 07/07/18 14:12 76 89 07/07/18 13:15 98.2 18 Room Air Impression: Primary Impression: Epigastric pain Condition: Improved Disposition: HOME OR SELF-CARE Referrals: AMADEO ROBERTS MD 5 Days New Scripts Pantoprazole Sodium (PROTONIX) 40 Mg Granpkt. 40 MG PO QDAY for 10 Days, #10 PACK Prov: KAMERON MARRUFO MD 07/07/18 Patient Instructions: Diet for Stomach Ulcers and Gastritis (ED), Gastritis (DC) KAMERON MARRUFO MD Jul 07, 2018 13:28
[2018-07-07 13:40] LABS: PLATELET COUNT, AUTOMATED 295 K/uL (150-450)
[2018-07-07] MEDS ORDERED: LIDOCAINE 2% VISC SLN 15ML UDC PO ONE (13:45)
[2018-07-07] MEDS ORDERED: MAG HYD/AL HYD/SIMETH 30ML UDC PO ONE (13:45)
[2018-07-07] MEDS ORDERED: ATRO/SCOPOL/HYOSCY/PB 5 ML ELX PO ONE (13:45)
[2018-07-07 13:49] LABS: INR 0.94
--- NOTE | 2018-07-07 14:11 | RADIOLOGY IMAGING REPORT ---
FACILITY: [facility] PATIENT NAME: Terra Gomez : 1975 MR: [id number] V: [id number] EXAM DATE: ORDERING PHYSICIAN: KAMERON MARRUFO TECHNOLOGIST: Location: [facility] - [place] Patient: Terra Gomez : 1975 Visit/Account:[id number] Date of Sevice: 07/07/2018 Exam type: CHEST PA AND LAT History: Right upper quadrant pain Comparison: August 20, 2015. And August 04, 2015 Findings: There is slight indistinctness of the left hemidiaphragm although this appears similar to the prior s tudy and likely represents a small area of scarring there is no evidence of acute primary consolidati on, pleural effusions or pulmonary edema. The cardiac silhouette is normal in size. IMPRESSION: 1. Mild indistinctness of the left hemidiaphragm that appears similar to the prior study and likely represents a small focal area of scarring Report Dictated By: Darcy Arroyo MD at 07/07/2018 2:05 PM Report E-Signed By: Darcy Arroyo MD at 07/07/2018 2:08 PM WSN:[email or web address]
[2018-07-07 14:30] VITALS: BP 125/86
--- NOTE | 2018-07-07 14:32 | RADIOLOGY IMAGING REPORT ---
FACILITY: [facility] PATIENT NAME: Terra Gomez : 1975 MR: [id number] V: [id number] EXAM DATE: ORDERING PHYSICIAN: KAMERON MARRUFO TECHNOLOGIST: [place] [facility] [place]ra [place] : 1975 Visit/Account:[id number] Date of Sevice: 07/07/2018 EXAMINATION: Limited right upper quadrant ultrasound Additional Pertinent history: Right upper quadrant pain. COMPARISON STUDIES: 04/24/2018. FINDINGS: Gallbladder: no stones, sludge, wall thickening or pericholecystic fluid. Negative ultrasound Mcrae sign. Liver: Normal size and echotexture without focal abnormality. Smooth surface. Portal vein is patent . No ascites. Common duct: normal 3.9 mm. Pancreas: Normal Right kidney: negative Proximal IVC/Aorta: negative IMPRESSION: Normal right upper quadrant ultrasound. Report Dictated By: Bartolo Ayala at 07/07/2018 2:25 PM Report E-Signed By: Bartolo Ayala at 07/07/2018 2:27 PM WSN:[email or web address]
[2018-07-07] MEDS ORDERED: PANT40SU3 PO (14:46)
== END 2018-07-07 14:58 | disposition home or self-care (01) ==
LOC: ER 13:12
DX: R10.13 Epigastric pain (principal)
CPT/HCPCS: 71046; 80305; 81001; 83690; 85025; 85610; 85730; 96361; 96365; 96375; 99284; G0480; J2405; J3490; J7030; 80320; 82040; 82247; 82310; 82374; 82435; 82565; 82947; 84075; 84132; 84155; 84295; 84450; 84460; 84520

== ENCOUNTER 2018-07-09 22:12 | Emergency (ER) | payer MEDICAID ==
[2016-05-15 08:53] VITALS: Wt 63.5 kg
[~2018-07-09 22:12] MED LIST changes: -PANT40TA65 PO
[2018-07-09] MEDS ORDERED: NS(*) 0.9% 1000 ML BAG 1,000 ML IV ONE (22:14)
[2018-07-09] MEDS ORDERED: ACETAMINOPHEN 325 MG TAB PO ONE (22:15)
[2018-07-09] MEDS ORDERED: LIDOCAINE 2% VISC SLN 15ML UDC PO ONE (22:15)
[2018-07-09] MEDS ORDERED: PANTOPRAZOLE SOD 40 MG IV VIAL IVP ONE (22:15)
[2018-07-09] MEDS ORDERED: MAG HYD/AL HYD/SIMETH 30ML UDC PO ONE (22:15)
[2018-07-09] MEDS ORDERED: ONDANSETRON 4 MG/2 ML VIAL IVP ONE (22:15)
[2018-07-09] MEDS ORDERED: ATRO/SCOPOL/HYOSCY/PB 5 ML ELX PO ONE (22:15)
--- NOTE | 2018-07-09 23:00 | EKG ---
FACILITY: [facility] PATIENT NAME: SARAH GARCIA : [id number] MR: [id number] V: [id number] EXAM DATE: ORDERING PHYSICIAN: MAGGY HOOD TECHNOLOGIST: RONAL Test Reason : GI PAIN Blood Pressure : / mmHG Vent. Rate : 070 BPM Atrial Rate : 070 BPM P-R Int : 158 ms QRS Dur : 084 ms QT Int : 414 ms P-R-T Axes : 046 024 021 degrees QTc Int : 447 ms Normal sinus rhythm Normal ECG When compared with ECG of 20-AUG-2015 21:08, No significant change was found Confirmed by JOSE DAVID DOMINGUEZ ([id number]) on 07/10/2018 6:36:37 AM Referred By: Confirmed By:JOSE DAVID DOMINGUEZ
[2018-07-09 23:05] LABS: PLATELET COUNT, AUTOMATED 289 K/uL (150-450)
[2018-07-09] MEDS ORDERED: KETOROLAC 30 MG/ML VIAL IVP ONE (23:10)
[2018-07-09 23:14] VITALS: BP 151/89
--- NOTE | 2018-07-09 23:20 | ER Report ---
History and Physical Time Seen By MD: 22:20 Hx. of Stated Complaint: upper abd pain going into the chest HPI/ROS CHIEF COMPLAINT: Epigastric pain, chest pain HISTORY OF PRESENT ILLNESS: 42-year-old female brought in from home complaining of epigastric pain with radiation into her chest. She describes sharp chest pains which forced her to call 911. Patient was seen here in the ER several days ago, had an extensive evaluation. She was diagnosed with GERD. She is in a treatment plan restricting use of opiates and benzos. Patient continues to smoke. She states she drinks caffeine in the form of coffee in the mornings. She denies alcohol or drug use. Patient was prescribed Protonix during her last visit. She states she's been compliant on that. She states she has an appointment to see GI for endoscopy next Thursday. REVIEW OF SYSTEMS: Respiratory: No cough, no dyspnea. Cardiovascular: As above Gastrointestinal: As above Musculoskeletal: No back pain. Allergies: Coded Allergies: Penicillins (Verified Allergy, Intermediate, FELT LIKE SKIN WAS ON FIRE, 07/09/18) Sulfa (Sulfonamide Antibiotics) (Verified Allergy, Intermediate, RED BLOTCHES, 07/09/18) Home Meds Active Scripts Pantoprazole Sodium (PROTONIX) 40 Mg Granpkt.dr, 40 MG PO QDAY for 10 Days, #10 PACK Prov:KAMERON MARRUFO MD 07/07/18 Reported Medications Duloxetine Hcl (CYMBALTA) 60 Mg Capsule.dr, 60 MG PO HS, #5 CAP 07/07/18 Discontinued Scripts Cyclobenzaprine Hcl (CYCLOBENZAPRINE HCL) 10 Mg Tablet, 5-10 MG PO TID PRN for MUSCLE SPASMS, #9 TAB Prov:LEDY HOWARD DIRECTOR OF EARLY CHILDHOOD-BC 04/24/18 Hydrocodone Bit/Acetaminophen (HYDROCODON-ACETAMINOPHEN 5-325) 1 Each Tablet, 1 EACH PO Q4-6H PRN for PAIN, #10 TAB Prov:SANDRA ORTEZ DO 03/18/18 Hx Smoking: Yes Smoking Status: Heavy Tobacco Smoker Exposure to Second Hand Smoke?: Yes Hx Substance Use Disorder: Yes (METH; WEED NO LONGER USING) Hx Alcohol Use: No Constitutional Vital Sign - Last 24 Hours 07/09/18 07/09/18 07/09/18 07/09/18 22:12 22:15 22:19 22:20 Temp 98.5 Pulse ??? 79 Resp 22 B/P (MAP) 111/100 (104) 126/78 (94) 126/78 Pulse Ox 97 O2 Delivery Nasal Cannula 07/09/18 07/09/18 07/09/18 22:42 23:12 23:14 Pulse 81 78 Resp 28 27 B/P (MAP) 151/89 (109) Pulse Ox 97 86 Intake and Output 07/09/18 07/09/18 07/10/18 15:00 23:00 07:00 Intake Total 750 ml Balance 750 ml Physical Exam General Appearance: The patient is alert, has no immediate need for airway protection and no current signs of toxicity. Vital signs stable, afebrile, pulse ox normal HEENT: Pupils equal and round no injection. TMs normal, oropharynx without redness or exudate, mucous. Membranes are moist Respiratory: Chest is non tender, lungs are clear to auscultation. Cardiac: regular rate and rhythm Gastrointestinal: Abdomen is soft and non tender, no masses, bowel sounds normal. Musculoskeletal: Neck: Neck is supple and non tender. Extremities have full range of motion and are non tender. Skin: No rashes or lesions. DIFFERENTIAL DIAGNOSIS: After history and physical exam differential diagnosis was considered for abdominal pain including but not limited to appendicitis, cholecystitis, gastritis, peptic ulcer disease, GERD and urinary tract infection. Medical Decision Making Data Points Result Diagram: 07/09/18225107/09/182 Laboratory Hematology Test 07/09/18 22:32 07/09/18 22:52 Sodium Level 139 mmol/L (137-145) Potassium Level 4.2 mmol/L (3.5-5.0) Chloride Level 108 mmol/L (98-107) Carbon Dioxide Level 16 mmol/L (22-31) Blood Urea Nitrogen 12 mg/dl (7-18) Creatinine 0.60 mg/dl (0.52-1.04) Glomerular Filtration Rate Calc > 60.0 Random Glucose 98 mg/dl (75-110) Calcium Level 9.2 mg/dl (8.4-10.2) Total Bilirubin 0.2 mg/dl (0.2-1.3) Aspartate Amino Transf (AST/SGOT) 17 U/L (0-35) Alanine Aminotransferase (ALT/SGPT) 22 U/L (0-56) Alkaline Phosphatase 99 U/L (0-126) Troponin I < 0.012 ng/ml Total Protein 6.7 g/dl (6.3-8.2) Albumin 4.4 g/dl (3.5-5.0) Amylase Level 41 U/L (0-110) Lipase 296 U/L (23-300) Red Blood Count 5.01 M/uL (4.17-5.56) Mean Corpuscular Volume 93.7 fL (80.0-96.0) Mean Corpuscular Hemoglobin 31.5 pg (26.0-33.0) Mean Corpuscular Hemoglobin Concent 33.6 g/dL (32.0-36.0) Red Cell Distribution Width 13.3 % (11.5-14.5) Mean Platelet Volume 8.4 fL (7.2-11.1) Neutrophils (%) (Auto) 57.0 % (39.4-72.5) Lymphocytes (%) (Auto) 30.4 % (17.6-49.6) Monocytes (%) (Auto) 8.3 % (4.1-12.4) Eosinophils (%) (Auto) 2.9 % (0.4-6.7) Basophils (%) (Auto) 1.4 % (0.3-1.4) Nucleated RBC Relative Count (auto) 0.1 /100WBC Neutrophils # (Auto) 4.5 K/uL (2.0-7.4) Lymphocytes # (Auto) 2.4 K/uL (1.3-3.6) Monocytes # (Auto) 0.7 K/uL (0.3-1.0) Eosinophils # (Auto) 0.2 K/uL (0.0-0.5) Basophils # (Auto) 0.1 K/uL (0.0-0.1) Nucleated RBC Absolute Count (auto) 0.01 K/uL Chemistry Test 07/09/18 22:32 07/09/18 22:52 Glomerular Filtration Rate Calc > 60.0 Calcium Level 9.2 mg/dl (8.4-10.2) Total Bilirubin 0.2 mg/dl (0.2-1.3) Aspartate Amino Transf (AST/SGOT) 17 U/L (0-35) Alanine Aminotransferase (ALT/SGPT) 22 U/L (0-56) Alkaline Phosphatase 99 U/L (0-126) Troponin I < 0.012 ng/ml Total Protein 6.7 g/dl (6.3-8.2) Albumin 4.4 g/dl (3.5-5.0) Amylase Level 41 U/L (0-110) Lipase 296 U/L (23-300) White Blood Count 7.8 k/uL (4.5-11.0) Red Blood Count 5.01 M/uL (4.17-5.56) Hemoglobin 15.8 g/dL (12.0-16.0) Hematocrit 47.0 % (34.0-47.0) Mean Corpuscular Volume 93.7 fL (80.0-96.0) Mean Corpuscular Hemoglobin 31.5 pg (26.0-33.0) Mean Corpuscular Hemoglobin Concent 33.6 g/dL (32.0-36.0) Red Cell Distribution Width 13.3 % (11.5-14.5) Platelet Count 289 K/uL (150-450) Mean Platelet Volume 8.4 fL (7.2-11.1) Neutrophils (%) (Auto) 57.0 % (39.4-72.5) Lymphocytes (%) (Auto) 30.4 % (17.6-49.6) Monocytes (%) (Auto) 8.3 % (4.1-12.4) Eosinophils (%) (Auto) 2.9 % (0.4-6.7) Basophils (%) (Auto) 1.4 % (0.3-1.4) Nucleated RBC Relative Count (auto) 0.1 /100WBC Neutrophils # (Auto) 4.5 K/uL (2.0-7.4) Lymphocytes # (Auto) 2.4 K/uL (1.3-3.6) Monocytes # (Auto) 0.7 K/uL (0.3-1.0) Eosinophils # (Auto) 0.2 K/uL (0.0-0.5) Basophils # (Auto) 0.1 K/uL (0.0-0.1) Nucleated RBC Absolute Count (auto) 0.01 K/uL EKG/Imaging EKG Interpretation 12 lead EK Rhythm: normal sinus rhythm [place]: normal QRS: normal ST segments: normal, no evidence of ischemia or dysrhythmia ED Course/Re-evaluation Clinical Indication for ER IV: IV Access ED Course Patient was admitted to an examination room. H&P was done. The differential diagnoses was considered. Patient with severe epigastric pain. Likely exacerbation of her GERD. Patient's diagnostic studies were unremarkable including EKG and troponin. She was to with the GI cocktail, by mouth Tylenol, Zofran and Toradol. Patient's discharged home. She is advised to take her Protonix 40 mg by mouth twice a day. Patient's advised to follow-up as planned. Decision to Disposition Date: Jul 09, 2018 Decision to Disposition Time: 23:14 Depart Departure Latest Vital Signs Vital Signs Date Time Temp Pulse Resp B/P (MAP) Pulse Ox O2 Delivery O2 Flow Rate FiO2 07/09/18 23:14 151/89 (109) 07/09/18 23:12 78 27 86 07/09/18 22:20 98.5 Nasal Cannula Impression: Primary Impression: Epigastric pain Additional Impression: Dyspepsia Condition: Improved Disposition: HOME OR SELF-CARE Referrals: LIZA GREENFIELD (PCP) Patient Instructions: Gastroesophageal Reflux Disease (ED) Additional Instructions: Take Protonix 40 mg twice daily Follow-up with primary care in 3-5 days Problem Qualifiers MAGGY HOOD DO Jul 09, 2018 23:20
== END 2018-07-09 23:40 | disposition home or self-care (01) ==
LOC: ER 22:14
DX: R10.13 Epigastric pain (principal); K21.9 Gastro-esophageal reflux disease without esophagitis
CPT/HCPCS: 36415; 82150; 83690; 84484; 85025; 93005; 96361; 96374; 96375; 99284; C9113; J1885; J2405; J7030; 82040; 82247; 82310; 82374; 82435; 82565; 82947; 84075; 84132; 84155; 84295; 84450; 84460; 84520

== ENCOUNTER → 2018-07-09 | Outpatient (CLI) | payer MEDICAID ==
[2016-05-15 08:53] VITALS: BMI 23.8
[~2018-07-09] MED LIST changes: +PANT40SU3 PO; +PANT40TA65 PO
== END ==
LOC: AMB 21:43
PROVIDERS: ATTEND Nurse Practitioner
DX: R07.1 Chest pain on breathing (principal); R06.4 Hyperventilation; R10.9 Unspecified abdominal pain; R11.0 Nausea
CPT/HCPCS: A0425; A0427

== ENCOUNTER → 2018-07-21 | Outpatient (CLI) | payer MEDICAID ==
[2016-05-15 08:53] VITALS: BMI 23.8
[~2018-07-21] MED LIST changes: +PANT40TA65 PO
== END ==
LOC: LAB 13:57
PROVIDERS: ATTEND Surgery
DX: M54.5 Low back pain (principal); R30.0 Dysuria
CPT/HCPCS: 81001

== ENCOUNTER 2018-11-09 20:47 | Emergency (ER) | payer MEDICAID ==
[2016-05-15 08:53] VITALS: Wt 71.2 kg
[2018-11-09] MEDS ORDERED: TRAM-420 PO (20:58)
[2018-11-09] MEDS ORDERED: DULO30CA35 PO (20:58)
[2018-11-09] MEDS ORDERED: ARIP10TA4 PO (20:58)
[2018-11-09] MEDS ORDERED: DIPHTH/TETANUS/ACEL. PERTUSSIS IM ONLY ONE (21:15)
[2018-11-09] MEDS ORDERED: NICOTINE POLACRILEX 4 MG LOZG PO PRN (21:15)
[2018-11-09 21:25] LABS: PLATELET COUNT, AUTOMATED 328 K/uL (150-450)
--- NOTE | 2018-11-09 21:40 | ER Report ---
History and Physical Time Seen By MD: 20:55 Hx. of Stated Complaint: PT HAS HAD DEPRESSIVE EPISODE REPORTED THAT SHE TRIED TO CUT HER WRISTS. HPI/ROS CHIEF COMPLAINT: Depression with suicidal ideation HISTORY OF PRESENT ILLNESS: 42-year-old female brought in by her son who requesting voluntary admission to [facility] for suicidal ideation and depression. Patient got out of rehabilitation a week or so ago. She had some medical issues. They were unable to care for. Patient was severely depressed on Thursday and did some self cutting on her left wrist. There is a healing scab consistent with a superficial laceration approximately 2-3 cm in length, there are old scars there from previous cutting episodes. Patient denies drugs or alcohol use. Patient's been following up with her primary care who started her on Abilify 5 mg and is doubled up to 10 to help control her movements. Patient feels she is unsafe at home. She continues to have suicidal ideation. She has no specific plan REVIEW OF SYSTEMS: Respiratory: No cough, no dyspnea. Cardiovascular: No chest pain, no palpitations. Gastrointestinal: No vomiting, no abdominal pain. Musculoskeletal: No back pain. Allergies: Coded Allergies: Penicillins (Verified Allergy, Intermediate, FELT LIKE SKIN WAS ON FIRE, 11/09/18) Sulfa (Sulfonamide Antibiotics) (Verified Allergy, Intermediate, RED BLOTCHES, 11/09/18) Home Meds Active Scripts Pantoprazole Sodium (PANTOPRAZOLE SODIUM) 40 Mg Tablet.dr, 1 TAB PO BID, #60 TAB 3 Refills Take on an empty stomach and wait 30 minutes before eating. Prov:AMADEO ROBERTS MD 07/21/18 Reported Medications Duloxetine Hcl (CYMBALTA) 30 Mg Capsule.dr, 90 MG PO HS, #5 CAP 11/09/18 Aripiprazole (ABILIFY) 10 Mg Tablet, 10 MG PO QDAY, TAB 11/09/18 Tramadol Hcl (TRAMADOL HCL) 50 Mg Tablet, 50-100 MG PO Q4-6H, TAB 11/09/18 Discontinued Reported Medications Duloxetine Hcl (CYMBALTA) 60 Mg Capsule.dr, 60 MG PO HS, #5 CAP 07/07/18 Discontinued Scripts Ketorolac Tromethamine (KETOROLAC TROMETHAMINE) 10 Mg Tab, 1 TAB PO Q6H PRN for PAIN, #20 TAB 3 Refills Two tablets one time then one tablet every 6 hours as needed for pain. Prov:LEANNE LIMON DO 08/12/18 Hx Smoking: Yes (CURRENTLY TRYING TO QUIT 2018) Smoking Status: Heavy Tobacco Smoker Exposure to Second Hand Smoke?: Yes Hx Substance Use Disorder: Yes (METH; WEED NO LONGER USING) Constitutional Vital Sign - Last 24 Hours 11/09/18 11/09/18 11/09/18 11/09/18 20:51 20:56 21:00 21:02 Temp 98.0 Pulse 100 94 Resp 16 B/P (MAP) 147/109 147/109 (122) 128/101 (110) Pulse Ox 94 92 O2 Delivery Room Air 11/09/18 11/09/18 11/09/18 11/09/18 21:17 21:30 21:32 21:47 Pulse 90 96 99 B/P (MAP) 143/86 (105) Pulse Ox 94 91 91 11/09/18 11/09/18 22:00 22:17 Pulse 93 B/P (MAP) 117/86 (96) Pulse Ox 95 Physical Exam General Appearance: The patient is alert, has no immediate need for airway protection and no current signs of toxicity. Vital signs stable, afebrile, pulse ox normal HEENT: Pupils equal and round no injection. TMs normal, oropharynx without redness or exudate Respiratory: Chest is non tender, lungs are clear to auscultation. Cardiac: regular rate and rhythm Gastrointestinal: Abdomen is soft and non tender, no masses, bowel sounds normal. Musculoskeletal: Neck: Neck is supple and non tender. No lymphadenopathy Extremities have full range of motion and are non tender. Close examination of the left wrist reveals a superficial cutting lopez approximately 3 cm in length with a well form scab, there is some surrounding erythema but not intense enough to suggest cellulitis Skin: No rashes or lesions. DIFFERENTIAL DIAGNOSIS: After history and physical exam differential diagnosis was considered for depression including functional and major depression, situational depression, medication side effect, suicidal ideation, suicidal attempt, suicidal gesture drugs and alcohol abuse. Medical Decision Making Data Points Result Diagram: 11/09/18210411/09/182104 Laboratory Hematology Test 11/09/18 20:50 11/09/18 21:05 Urine Color Yellow Urine Clarity Clear Urine pH 5.0 pH (4.8-9.5) Urine Specific [place] 1.025 Urine Protein Negative mg/dL (NEGATIVE) Urine Glucose (UA) Negative mg/dL (NEGATIVE) Urine Ketones Trace mg/dL (NEGATIVE) Urine Blood Moderate (NEGATIVE) Urine Nitrite Negative (NEGATIVE) Urine Bilirubin Negative (NEGATIVE) Urine Urobilinogen 2.0 mg/dL (0.2-1.9) Urine Leukocyte Esterase Negative (NEGATIVE) Urine RBC 22 /HPF (0-2/HPF) Urine WBC 1 /HPF (0-5/HPF) Urine Squamous Epithelial Cells Many /LPF (</=FEW) Urine Bacteria Few /HPF (NONE-FEW) Urine Mucus Few /HPF (NONE-FEW) Urine Opiates Screen Negative Urine Barbiturates Screen Negative Ur Tricyclic Antidepressants Screen Negative Urine Phencyclidine Screen Negative Urine Amphetamines Screen Positive Urine Benzodiazepines Screen Negative Urine Cocaine Screen Negative Urine Cannabinoids Screen Positive Red Blood Count 5.30 M/uL (4.17-5.56) Mean Corpuscular Volume 92.1 fL (80.0-96.0) Mean Corpuscular Hemoglobin 31.5 pg (26.0-33.0) Mean Corpuscular Hemoglobin Concent 34.2 g/dL (32.0-36.0) Red Cell Distribution Width 14.0 % (11.5-14.5) Mean Platelet Volume 8.4 fL (7.2-11.1) Neutrophils (%) (Auto) 64.5 % (39.4-72.5) Lymphocytes (%) (Auto) 25.0 % (17.6-49.6) Monocytes (%) (Auto) 8.5 % (4.1-12.4) Eosinophils (%) (Auto) 1.8 % (0.4-6.7) Basophils (%) (Auto) 0.2 % (0.3-1.4) Nucleated RBC Relative Count (auto) 0.1 /100WBC Neutrophils # (Auto) 4.6 K/uL (2.0-7.4) Lymphocytes # (Auto) 1.8 K/uL (1.3-3.6) Monocytes # (Auto) 0.6 K/uL (0.3-1.0) Eosinophils # (Auto) 0.1 K/uL (0.0-0.5) Basophils # (Auto) 0.0 K/uL (0.0-0.1) Nucleated RBC Absolute Count (auto) 0.01 K/uL Sodium Level 138 mmol/L (137-145) Potassium Level 3.2 mmol/L (3.5-5.0) Chloride Level 106 mmol/L (98-107) Carbon Dioxide Level 21 mmol/L (22-31) Blood Urea Nitrogen 9 mg/dl (7-18) Creatinine 0.60 mg/dl (0.52-1.04) Glomerular Filtration Rate Calc > 60.0 Random Glucose 115 mg/dl (75-110) Calcium Level 9.2 mg/dl (8.4-10.2) Magnesium Level 2.0 mg/dl (1.7-2.2) Total Bilirubin 0.6 mg/dl (0.2-1.3) Aspartate Amino Transf (AST/SGOT) 25 U/L (0-35) Alanine Aminotransferase (ALT/SGPT) 18 U/L (0-56) Alkaline Phosphatase 84 U/L (0-126) Total Protein 7.5 g/dl (6.3-8.2) Albumin 4.8 g/dl (3.5-5.0) Thyroid Stimulating Hormone (TSH) 6.87 uIU/ml (0.46-4.68) Salicylates Level < 10 mg/L Salicylate Last Dose Date unk Acetaminophen Level < 10 ug/ml Serum Alcohol < 10 mg/dl Chemistry Test 11/09/18 20:50 11/09/18 21:05 Urine Color Yellow Urine Clarity Clear Urine pH 5.0 pH (4.8-9.5) Urine Specific [place] 1.025 Urine Protein Negative mg/dL (NEGATIVE) Urine Glucose (UA) Negative mg/dL (NEGATIVE) Urine Ketones Trace mg/dL (NEGATIVE) Urine Blood Moderate (NEGATIVE) Urine Nitrite Negative (NEGATIVE) Urine Bilirubin Negative (NEGATIVE) Urine Urobilinogen 2.0 mg/dL (0.2-1.9) Urine Leukocyte Esterase Negative (NEGATIVE) Urine RBC 22 /HPF (0-2/HPF) Urine WBC 1 /HPF (0-5/HPF) Urine Squamous Epithelial Cells Many /LPF (</=FEW) Urine Bacteria Few /HPF (NONE-FEW) Urine Mucus Few /HPF (NONE-FEW) Urine Opiates Screen Negative Urine Barbiturates Screen Negative Ur Tricyclic Antidepressants Screen Negative Urine Phencyclidine Screen Negative Urine Amphetamines Screen Positive Urine Benzodiazepines Screen Negative Urine Cocaine Screen Negative Urine Cannabinoids Screen Positive White Blood Count 7.2 k/uL (4.5-11.0) Red Blood Count 5.30 M/uL (4.17-5.56) Hemoglobin 16.7 g/dL (12.0-16.0) Hematocrit 48.7 % (34.0-47.0) Mean Corpuscular Volume 92.1 fL (80.0-96.0) Mean Corpuscular Hemoglobin 31.5 pg (26.0-33.0) Mean Corpuscular Hemoglobin Concent 34.2 g/dL (32.0-36.0) Red Cell Distribution Width 14.0 % (11.5-14.5) Platelet Count 328 K/uL (150-450) Mean Platelet Volume 8.4 fL (7.2-11.1) Neutrophils (%) (Auto) 64.5 % (39.4-72.5) Lymphocytes (%) (Auto) 25.0 % (17.6-49.6) Monocytes (%) (Auto) 8.5 % (4.1-12.4) Eosinophils (%) (Auto) 1.8 % (0.4-6.7) Basophils (%) (Auto) 0.2 % (0.3-1.4) Nucleated RBC Relative Count (auto) 0.1 /100WBC Neutrophils # (Auto) 4.6 K/uL (2.0-7.4) Lymphocytes # (Auto) 1.8 K/uL (1.3-3.6) Monocytes # (Auto) 0.6 K/uL (0.3-1.0) Eosinophils # (Auto) 0.1 K/uL (0.0-0.5) Basophils # (Auto) 0.0 K/uL (0.0-0.1) Nucleated RBC Absolute Count (auto) 0.01 K/uL Glomerular Filtration Rate Calc > 60.0 Calcium Level 9.2 mg/dl (8.4-10.2) Magnesium Level 2.0 mg/dl (1.7-2.2) Total Bilirubin 0.6 mg/dl (0.2-1.3) Aspartate Amino Transf (AST/SGOT) 25 U/L (0-35) Alanine Aminotransferase (ALT/SGPT) 18 U/L (0-56) Alkaline Phosphatase 84 U/L (0-126) Total Protein 7.5 g/dl (6.3-8.2) Albumin 4.8 g/dl (3.5-5.0) Thyroid Stimulating Hormone (TSH) 6.87 uIU/ml (0.46-4.68) Salicylates Level < 10 mg/L Salicylate Last Dose Date unk Acetaminophen Level < 10 ug/ml Serum Alcohol < 10 mg/dl Toxicology Test 11/09/18 20:50 11/09/18 21:05 Urine Opiates Screen Negative Urine Barbiturates Screen Negative Ur Tricyclic Antidepressants Screen Negative Urine Phencyclidine Screen Negative Urine Amphetamines Screen Positive Urine Benzodiazepines Screen Negative Urine Cocaine Screen Negative Urine Cannabinoids Screen Positive Salicylates Level < 10 mg/L Salicylate Last Dose Date unk Acetaminophen Level < 10 ug/ml Serum Alcohol < 10 mg/dl Urinalysis Test 11/09/18 20:50 Urine Color Yellow Urine Clarity Clear Urine pH 5.0 pH (4.8-9.5) Urine Specific [place] 1.025 Urine Protein Negative mg/dL (NEGATIVE) Urine Glucose (UA) Negative mg/dL (NEGATIVE) Urine Ketones Trace mg/dL (NEGATIVE) Urine Blood Moderate (NEGATIVE) Urine Nitrite Negative (NEGATIVE) Urine Bilirubin Negative (NEGATIVE) Urine Urobilinogen 2.0 mg/dL (0.2-1.9) Urine Leukocyte Esterase Negative (NEGATIVE) Urine RBC 22 /HPF (0-2/HPF) Urine WBC 1 /HPF (0-5/HPF) Urine Squamous Epithelial Cells Many /LPF (</=FEW) Urine Bacteria Few /HPF (NONE-FEW) Urine Mucus Few /HPF (NONE-FEW) EKG/Imaging EKG Interpretation 12 lead EK Rhythm: normal sinus rhythm [place]: normal QRS: normal . Mild QT prolongation to [address] segments: normal, no evidence of ischemia or dysrhythmia ED Course/Re-evaluation ED Course Patient was admitted to an examination room. H&P was done. The differential diagnoses was considered. On clinical examination. Patient has a healing wound on her left wrist consistent with self inflicted laceration. Patient is agreeable for voluntary admission to [facility] for help with her suicidal ideation. Patient's diagnostic studies were done. She her tox screen is positive for vitamins and cannabis. She has a history of polysubstance abuse. Patient's blood alcohol is 0. The rest of her electrolytes and CBC are unremarkable. Case is discussed with Dr. Gupta as noted below. An EKG was performed and there was slight increase in the QT interval to 466 ms. 11/09/2018 9:51:20 pm case discussed with Dr. Lin Villarreal accepts the patient for admission to [facility]. Decision to Disposition Date: November 09, 2018 Decision to Disposition Time: 21:51 Depart Departure Latest Vital Signs Vital Signs Date Time Temp Pulse Resp B/P (MAP) Pulse Ox O2 Delivery O2 Flow Rate FiO2 11/09/18 22:17 93 95 11/09/18 22:00 117/86 (96) 11/09/18 20:51 98.0 16 Room Air Impression: Primary Impression: Depression with suicidal ideation Additional Impression: Polysubstance abuse Condition: Improved Disposition: HOME OR SELF-CARE Referrals: LIZA GREENFIELD (PCP) Problem Qualifiers MAGGY HOOD DO November 09, 2018 21:40
[2018-11-09 22:00] VITALS: BP 117/86
--- NOTE | 2018-11-09 23:05 | EKG ---
[facility] PATIENT NAME: SARAH GARCIA : [id number] MR: [id number] V: [id number] EXAM DATE: ORDERING PHYSICIAN: MAGGY HOOD TECHNOLOGIST: MIRLANDE Test Reason : BH Blood Pressure : / mmHG Vent. Rate : 086 BPM Atrial Rate : 086 BPM P-R Int : 148 ms QRS Dur : 080 ms QT Int : 390 ms P-R-T Axes : 039 018 009 degrees QTc Int : 466 ms Sinus rhythm Probable left atrial enlargement Poor R wave progression anteriorly Slightly prolonged QTc interval Abnormal ECG Confirmed by JESSIE BLOOD ([id number]) on 11/10/2018 6:15:30 AM Referred By: Confirmed By:JESSIE BLOOD
== END 2018-11-09 22:32 ==
LOC: ER 21:00
DX: F32.9 Major depressive disorder, single episode, unspecified (principal); R45.851 Suicidal ideations; F19.10 Other psychoactive substance abuse, uncomplicated
CPT/HCPCS: 36415; 80305; 81001; 83735; 84443; 85025; 90471; 90715; 99284; G0480; 80320; 80329; 82040; 82247; 82310; 82374; 82435; 82565; 82947; 84075; 84132; 84155; 84295; 84450; 84460; 84520

== ENCOUNTER 2018-11-09 22:11 | Inpatient (IN) | payer MEDICAID ==
[2016-05-15 08:53] VITALS: Wt 71.4 kg
[~2018-11-09 22:11] MED LIST changes: +ARIP10TA4 PO; +DULO30CA35 PO
[2018-11-09 23:25] VITALS: BP 121/94
[2018-11-09] MEDS ORDERED: ACETAMINOPHEN 325 MG TAB PO PRN (23:25)
[2018-11-09] MEDS ORDERED: MAG HYD/AL HYD/SIMETH 30ML UDC PO PRN (23:25)
[2018-11-09] MEDS: DULoxetine HCL 30 MG CAPCR PO SCH (23:50)
[2018-11-09] MEDS: traMADol 50 MG TAB PO PRN (23:51)
[2018-11-09] MEDS: hydrOXYzine PAMOATE 25 MG CAP PO PRN (23:51)
[2018-11-10] MEDS ORDERED: ARIPiprazole 10 MG TAB PO SCH
[2018-11-10] MEDS: NICOTINE POLACRILEX 4 MG LOZG PO PRN ×9 (00:45→20:59)
[2018-11-10] MEDS: PANTOPRAZOLE SOD 40 MG TABEC PO SCH ×3 (08:26→20:59)
[2018-11-10] MEDS: ARIPiprazole 10 MG TAB PO SCH (08:26)
[2018-11-10] MEDS: traMADol 50 MG TAB PO PRN (08:42)
[2018-11-10] MEDS: hydrOXYzine PAMOATE 25 MG CAP PO PRN (12:09)
[2018-11-10] MEDS ORDERED: OLANZapine 5 MG TAB PO ONE (12:20)
[2018-11-10 14:32] VITALS: BP 115/81
--- NOTE | 2018-11-10 15:48 | RADIOLOGY IMAGING REPORT ---
FACILITY: [facility] PATIENT NAME: Terra Gomez : 1975 MR: [id number] V: [id number] EXAM DATE: ORDERING PHYSICIAN: MISTY BHANDARI TECHNOLOGIST: Location: [facility] [place] Patient: Terra Gomez : 1975 Visit/Account:[id number] Date of Sevice: 11/10/2018 MR SPINE CERVICAL W/O CON COMPARISON: None Additional pertinent history: Neck pain and arm pain Technique: Multiplanar multisequence cervical spine MRI was performed without gadolinium enhancement. FINDINGS: Vertebral body height and alignment: Mild reversal of normal cervical lordosis centered at C4-C5. Vertebral marrow signal: Negative Vertebral bodies: Anteriorly and posteriorly directed osteophytes at multiple levels. Cervical spinal cord signal, craniocervical junction and visualized posterior fossa: Negative Surrounding soft tissues: Negative Inspection of the disc spaces reveal the following: C1-C2: Negative C2-C3: Facet and uncovertebral degenerative changes with mild circumferential disc bulging. Moderate left-sided neural foraminal narrowing. Mild right-sided neural foraminal narrowing. No canal steno sis. C3-C4: Circumferential disc bulging with facet hypertrophic changes. Mild bilateral neural foraminal narrowing with mild canal stenosis. C4-C5: Posterior broad-based disc protrusion with facet and uncovertebral degenerative changes. Mode rate canal stenosis with moderate bilateral neural foraminal narrowing. C5-C6: Posterior broad-based disc protrusion with facet hypertrophic changes. Mild canal stenosis wi th mild bilateral neural foraminal narrowing. C6-C7: Posterior broad-based disc protrusion with a superimposed left neural foraminal disc extrusion . Severe left-sided neural foraminal narrowing. Moderate right-sided neural foraminal narrowing. M oderate canal stenosis. C7-T1: Negative Impression: 1. Multilevel spondylitic change as discussed above. 2. Findings felt to be potentially most significant at C4-C5 with moderate canal stenosis and modera te bilateral neural foraminal narrowing. Report Dictated By: Juan Bravo MD at 11/10/2018 3:39 PM Report E-Signed By: Juan Bravo MD at 11/10/2018 3:43 PM WSN:[id number]
--- NOTE | 2018-11-10 17:56 | HISTORY AND PHYSICAL ---
DATE OF ADMISSION: November 09, 2018 ATTENDING PHYSICIAN Lin Gupta MD The patient was interviewed on November 10, 2018, at 9 a.m. for this history and physical. CHIEF COMPLAINT "I had a suicide attempt Thursday, plus I'm still suicidal." HISTORY OF PRESENT ILLNESS This is one of multiple Behavioral Health admissions for this 42-year-old female who has a history of methamphetamine abuse, mood disorder, and likely borderline personality disorder, who is here on a voluntary basis for suicidal ideation and behavior. The patient was last here in 2016. She says that since then, she has been using drugs, mostly methamphetamine, also some alcohol and some marijuana. She says that she got into an argument with her on Thursday because her was mad at her for giving money to her son. She tried to cut her wrist on Thursday and did make a laceration, but did not seek any treatment. Then, she continued to have sporadic suicidal ideation, and so yesterday, Thursday, she did come to the Emergency Room. In the ER, her wrist was examined, and there is about a 2-inch laceration of her left forearm which is scabbed over and does not appear to be infected. She continued to complain of suicidal thinking and was referred for admission to [facility]. Today, she says that her depression is high, rating it at a 9/10. She acknowledges that she used methamphetamine yesterday, the day of admission. She reports that she was recently at an inpatient rehab at [facility] in [place] for three weeks in the beginning of October, but that she was discharged medically because of neck pain. She says she would like to return to [facility] after she finishes up with the workup of her neck. PAST PSYCHIATRIC HISTORY The patient has been hospitalized at [facility] numerous times for methamphetamine abuse, substance-induced mood disorder with multiple prior parasuicidal behaviors. In the past, she has been court committed to substance abuse rehab treatment. Most recently, she went to [facility] on October 12, 2018, for methamphetamine abuse, and she stayed there for three weeks. She has been a client at [facility], and she has seen a new therapist there, Vivian, one time. PAST MEDICAL HISTORY The patient complains of chronic left-sided neck and shoulder pain. She saw her outpatient provider, Monica Fernandes, this week, and an MRI was ordered. Monica also started her on tramadol and increased her Abilify from 5 mg to 10 mg. ALLERGIES SULFA and PENICILLIN. CURRENT MEDICATIONS 1. Abilify 10 mg at bedtime. 2. Cymbalta 90 mg q.a.m. 3. Tramadol 50 to 100 mg q.6 hours p.r.n. pain. 4. Protonix 40 mg twice a day. PAST SURGICAL HISTORY She has a history of hysterectomy for benign disease and history of surgical removal of a ganglion cyst. FAMILY PSYCHIATRIC HISTORY Multiple brothers, sisters, father, and other family members who have substance abuse issues. One brother committed suicide. SOCIAL HISTORY The patient was born and raised in [place]. She moved to [place] when she was a teenager. The parents were at the time of her . The patient has six brothers and sisters. She did graduate high school. She has not worked since she was 19 years old. She has one son and one daughter. She has been twice, currently with her for about 11 years. They live in a trailer home with her son and her sister. She has never been in the . She is on disability for mental disorder. LEGAL HISTORY She is currently on probation for felony DUI at the age of 41. She had a total of four DUIs in the past. She has had other arrests for driving without a license and driving without insurance. SUBSTANCE ABUSE HISTORY A long history of abusing multiple substances including methamphetamine, opiates, alcohol, marijuana, and benzodiazepines. She says she most recently used marijuana three days ago and has been using methamphetamine regularly, most recently yesterday. She says she drinks beer every once in a while, but not often. PHYSICAL EXAMINATION Please see the emergency physician's report. VITAL SIGNS: Temperature 98.1, pulse 82, blood pressure 121/94, pulse ox is 93% on room air. LABORATORY STUDIES Hemoglobin high at 16.7, hematocrit high at 48.7. The rest of the CBC is WNL. Potassium low at 3.2, CO2 low at 21, random glucose high at 115. TSH high at 6.87. The remainder of the chemistry panel is normal. Urinalysis shows trace ketones and 22 RBCs and is otherwise normal. Toxicology screen is positive for amphetamines and positive for cannabinoids. Her serum alcohol is nil. MENTAL STATUS EXAMINATION The patient is somewhat disheveled, dressed in hospital scrubs. She appears to be missing all of her teeth. She is alert and cooperative. She is somewhat hyperactive and antsy in her chair. Speech is delayed and sometimes difficult to understand, but it is certainly not pressured. Mood and affect are depressed. Thought process is circumstantial. Thought content is positive for visual hallucinations. She sees mice running around. It just started today. She denies any current suicidal ideation, homicidal ideation, auditory hallucinations, and delusions. She is alert and fully oriented to person, place, time, and situation. Memory is intact for immediate, recent, and remote recall. Intelligence is average to below average based on exam. Insight and judgment are poor. IMPRESSION 1. Amphetamines use disorder, severe. 2. Substance-induced mood disorder. 3. Likely underlying personality disorder. PLAN The patient is admitted voluntarily to [facility] and is being maintained on suicide precautions. We will resume her outpatient medications. We will treat her visual hallucinations with 5 mg of Zyprexa on a one-time basis for now. This is most likely due to her methamphetamine abuse yesterday. We will go ahead and get the cervical spine MRI that had been pending to be done as an outpatient. We will discuss with [facility] whether or not she can return there since this is her wish, and certainly, we would recommend continued substance abuse treatment. Her estimated length of stay will be three to five days. CHRIS
[2018-11-10] MEDS: DULoxetine HCL 30 MG CAPCR PO SCH (20:59)
[2018-11-10 22:21] VITALS: BP 95/71
[2018-11-11] MEDS: NICOTINE POLACRILEX 4 MG LOZG PO PRN ×8 (02:11→20:45)
[2018-11-11 05:42] VITALS: BP 98/73
[2018-11-11] MEDS: PANTOPRAZOLE SOD 40 MG TABEC PO SCH ×2 (08:04→20:46)
[2018-11-11] MEDS: ARIPiprazole 10 MG TAB PO SCH (08:04)
[2018-11-11] MEDS: GABAPENTIN 300 MG CAP PO SCH ×2 (11:27→20:45)
[2018-11-11] MEDS: ACETAMINOPHEN 500 MG TAB PO PRN ×2 (11:33→17:35)
[2018-11-11] MEDS: TROLAMINE SALIC 10% CR 90GM TB TP SCH ×2 (11:50→20:46)
--- NOTE | 2018-11-11 12:38 | BHS Progress Note ---
[facility] - Subjective Progress Notes Subjective Pt seen in conference room with team. Pt says she is doing better today because she is no longer seeing mice. She is still hoping to be able to get back into [facility]. Maya spoke with one person there yesterday regarding this, and is waiting to hear back from their director cloud transformation. Pt is talking about how meth is killing her. She has been cooperative and is actively participating in groups. Complains of nedk and left shoulder pain. Her cervical MRI shows significant spondylitis, degenerative changes-- I will review this with Medicine service for their recommendations. On exam her strength in both UE's is good, and there is no numbness/tingling. In the mean time we will start her on gabapentin for nerve pain, and titrate the dose up to 1200 mg per day. Will DC tramadol since she can't be on it in rehab. Change tylenol to 1000 mg. She can't take NSAIDS due to GI upset. Suicidal Ideation: None Homicidal Ideation: None [facility] - Objective Physical Exam Vital Signs Vital Signs 11/11/18 05:42 Temp 97.7 Pulse 109 Resp 15 B/P (MAP) 98/73 (81) Pulse Ox 90 O2 Delivery Room Air Muscle Strength and Tone: WNL Gait and Station: Steady [facility] Medications Reviewed: Side Effects, Benefits of Medication, Risks Allergies Reviewed: Yes Mental Status Exam General Appearance: Casual, Good Eye Contact, Cooperative, Polite, Good Interaction Speech: Clear, Spontaneous, Normal Rate, Normal Rhythm, Normal Volume, Normal Tone Mood: Euthymic Affect: Full and Appropriate Thought Process: Organized, Logical, Goal Directed Thought Content: No Suicidal Ideation, No Homicidal Ideation, No Delusions, No Auditory Halllucinations, No Visual Hallucinations, No Thought Broadcasting, No Ideas of Reference, No Obsessions, No Compulsions, No Other Sensorium: Clear Cognition: Alert & Oriented-Person, Alert & Oriented-Place, Alert & Oriented- Time, Enari-Iibmpfcg-Chumnocnb Memory: Other (will do MOCA today) Intelligence: Average Insight Judgment: Fair Imaging FINDINGS: Vertebral body height and alignment: Mild reversal of normal cervical lordosis centered at C4-C5. Vertebral marrow signal: Negative Vertebral bodies: Anteriorly and posteriorly directed osteophytes at multiple levels. Cervical spinal cord signal, craniocervical junction and visualized posterior fossa: Negative Surrounding soft tissues: Negative Inspection of the disc spaces reveal the following: C1-C2: Negative C2-C3: Facet and uncovertebral degenerative changes with mild circumferential disc bulging. Moderate left-sided neural foraminal narrowing. Mild right-sided neural foraminal narrowing. No canal stenosis. C3-C4: Circumferential disc bulging with facet hypertrophic changes. Mild bilateral neural foraminal narrowing with mild canal stenosis. C4-C5: Posterior broad-based disc protrusion with facet and uncovertebral degenerative changes. Moderate canal stenosis with moderate bilateral neural foraminal narrowing. C5-C6: Posterior broad-based disc protrusion with facet hypertrophic changes. Mild canal stenosis with mild bilateral neural foraminal narrowing. C6-C7: Posterior broad-based disc protrusion with a superimposed left neural foraminal disc extrusion. Severe left-sided neural foraminal narrowing. Moderate right-sided neural foraminal narrowing. Moderate canal stenosis. C7-T1: Negative Impression: 1. Multilevel spondylitic change as discussed above. 2. Findings felt to be potentially most significant at C4-C5 with moderate canal stenosis and moderate bilateral neural foraminal narrowing. [facility] Assessment and Plan Ojlk-[id number] Encounter Date: November 11, 2018 Xnhi-qc-[id number] Encounter Time: 10:00 S Plan: Necessary Precautions, Individual/Group Therapy, Admin/Titrate Meds, Educate Patient Tobacco Medications: Started Multpiple Antipsychotics Used: No Problems: (1) Substance induced mood disorder (2) Methamphetamine dependence, continuous Status: Chronic MISTY BHANDARI MD November 11, 2018 12:38
[2018-11-11] MEDS: TROLAMINE SALIC 10% CR 90GM TB TP PRN (13:03)
[2018-11-11 13:05] VITALS: BP 102/70
[2018-11-11] MEDS ORDERED: TIZA-128 PO (16:03)
[2018-11-11] MEDS: hydrOXYzine PAMOATE 25 MG CAP PO PRN (16:33)
[2018-11-11] MEDS: DULoxetine HCL 30 MG CAPCR PO SCH (20:45)
[2018-11-11 21:12] VITALS: BP 110/85
[2018-11-12] MEDS: NICOTINE POLACRILEX 4 MG LOZG PO PRN ×8 (03:40→20:26)
[2018-11-12 06:03] VITALS: BP 122/88
[2018-11-12] MEDS: TROLAMINE SALIC 10% CR 90GM TB TP SCH ×2 (08:16→20:27)
[2018-11-12] MEDS: ACETAMINOPHEN 500 MG TAB PO PRN ×2 (08:16→18:49)
[2018-11-12] MEDS: ARIPiprazole 10 MG TAB PO SCH (08:16)
[2018-11-12] MEDS: PANTOPRAZOLE SOD 40 MG TABEC PO SCH ×2 (08:16→20:27)
[2018-11-12] MEDS: GABAPENTIN 300 MG CAP PO SCH ×2 (08:16→20:26)
[2018-11-12] MEDS: hydrOXYzine PAMOATE 25 MG CAP PO PRN (10:59)
[2018-11-12] MEDS ORDERED: GABAPENTIN 300 MG CAP PO ONE (11:00)
--- NOTE | 2018-11-12 13:40 | BHS Progress Note ---
S - Subjective Progress Notes Subjective Pt seen in treatment team with her , father, sister, son, and financial aids officer present. She was talking about how she has changed, wants to go to rehab, how meth is "killing me." Nurse from [facility] was also on the speaker phone saying they need medical clearance letter regarding her neck, she would not be able to be on tramadol, but that Bio-freeze, gabapentin, and cymbalta would be acceptable at residential rehab program. Nurse also mentioned that Terra will not be able to get help from peers ambulating nor use a wheel chair while in the residential program-- she has to be able to ambulate independently. I reviewed her cervical MRI with hospitalist yesterday, and they said she is medically clear to go to rehab, that conservative measures like neurontin and cymbalta are recommended for now, and that she can follow up with [facility] at a later date if pain does not improve or gets worse. Pt tolerated neurontin 300 mg BID yesterday-- will increase to 600 mg BID today. She is working hard and participating actively in groups. Pt's family very supportive of her going to rehab. Pt told them where she has a stash of meth at home and her son will destroy it. Will continue efforts to get her back in to [facility]. Pt denies SI today. Yesterday pt scored a 14 on her MOCA, likely reflecting years of meth abuse-- will repeat it early next week to see if any improvement as she clears. Suicidal Ideation: None Homicidal Ideation: None [facility] - Objective Physical Exam Vital Signs Vital Signs 11/12/18 06:03 Temp 98.2 Pulse 86 Resp 15 B/P (MAP) 122/88 (99) Pulse Ox 97 O2 Delivery Room Air Muscle Strength and Tone: WNL Gait and Station: Steady [facility] Medications Reviewed: Side Effects, Benefits of Medication, Risks Allergies Reviewed: Yes Mental Status Exam General Appearance: Casual, Well Groomed, Good Eye Contact, Cooperative, Polite, Good Interaction Speech: Clear, Spontaneous, Normal Rate, Normal Rhythm, Normal Volume, Normal Tone Mood: Euthymic Affect: Full and Appropriate Thought Process: Organized, Logical, Goal Directed Thought Content: No Suicidal Ideation, No Homicidal Ideation, No Delusions, No Auditory Halllucinations, No Visual Hallucinations, No Thought Broadcasting, No Ideas of Reference, No Obsessions, No Compulsions, No Other Sensorium: Clear Cognition: Alert & Oriented-Person, Alert & Oriented-Place, Alert & Oriented- Time, Jqnba-Krhialgu-Htldjmsbc Memory: Other (scored 14 on MOCA yesterday) Intelligence: Average Insight Judgment: Fair [facility] Assessment and Plan Gezu-wm-Aqhu Encounter Date: November 12, 2018 Afzn-wz-Qkod Encounter Time: 10:00 [facility] Plan: Necessary Precautions, Individual/Group Therapy, Admin/Titrate Meds, Educate Patient Tobacco Medications: Started Multpiple Antipsychotics Used: No Problems: (1) Substance induced mood disorder (2) Methamphetamine dependence, continuous Status: Chronic MISTY BHANDARI MD November 12, 2018 13:40
[2018-11-12 14:33] VITALS: BP 126/82
[2018-11-12 16:40] VITALS: BP 104/72
[2018-11-12] MEDS: MENTHOL TOP PRN (17:32)
[2018-11-12] MEDS: CAMPHOR TOP PRN (17:32)
[2018-11-12] MEDS: DULoxetine HCL 30 MG CAPCR PO SCH (20:27)
[2018-11-13] MEDS: NICOTINE POLACRILEX 4 MG LOZG PO PRN ×13 (05:35→21:27)
[2018-11-13] MEDS: MENTHOL TOP PRN (05:35)
[2018-11-13] MEDS: CAMPHOR TOP PRN (05:35)
[2018-11-13 06:35] VITALS: BP 129/95
[2018-11-13] MEDS: TROLAMINE SALIC 10% CR 90GM TB TP SCH ×2 (08:23→20:20)
[2018-11-13] MEDS: ACETAMINOPHEN 500 MG TAB PO PRN (08:23)
[2018-11-13] MEDS: ARIPiprazole 10 MG TAB PO SCH (08:24)
[2018-11-13] MEDS: PANTOPRAZOLE SOD 40 MG TABEC PO SCH ×2 (08:24→20:20)
[2018-11-13] MEDS: GABAPENTIN 300 MG CAP PO SCH ×2 (08:24→20:20)
[2018-11-13] MEDS ORDERED: PATIENT'S OWN MED PO PRN (08:45)
[2018-11-13] MEDS ORDERED: GABAPENTIN 300 MG CAP PO SCH (09:00)
[2018-11-13] MEDS: hydrOXYzine PAMOATE 25 MG CAP PO PRN (10:27)
[2018-11-13] MEDS: ACETAMINOPHEN PO PRN (12:16)
[2018-11-13] MEDS: PYRILAMINE PO PRN (12:16)
[2018-11-13] MEDS: CAFFEINE PO PRN (12:16)
[2018-11-13 13:00] VITALS: BP 122/84
--- NOTE | 2018-11-13 15:52 | NUR ---
Patient was concerned that her blood sugar was low because she felt "jittery".This nurse pointed out that she had 2 bottles of Pepsi today and Midol which contains caffeine. The patient hasn't had any caffeine since admit 4 days ago. The patient persisted that it felt like a blood sugar crisis so this nurse checked her sugar and it was 111. This seem to reassure her. Staff continues to monitor.
[2018-11-13] MEDS: DULoxetine HCL 30 MG CAPCR PO SCH (20:20)
--- NOTE | 2018-11-13 21:20 | BHS Progress Note ---
[facility] - Subjective Progress Notes Subjective Pt seen in conference room with team. Today is her birthday, she is in happy mood, with a little sadnesss recalling her mother who has -- today was her birthday as well, ans pt wishing she could go put reyes on her grave. But overall doing well, very motivated to get to residential treatment. We discussed her pain medications, need to stay away from any opiates, use of relaxation, coping skills for chronic pain. Later this morning she did report some stuttering, feeling "out-or-it." So we will slow down the titration of gabapentin-- just stay on 600 mg BID for today and likely tomorrow as well. Hopefully we could increase to 600 TID on Thursday and see how she does. Team meeting Thursday with family and with CC on phone-- if bed available we will plan admission there [facility]. She says family will be able to transport her there. Suicidal Ideation: None Homicidal Ideation: None [facility] - Objective Physical Exam Vital Signs Vital Signs 11/13/18 13:00 Temp 99.0 Pulse 78 Resp 16 B/P (MAP) 122/84 (97) Pulse Ox 93 O2 Delivery Room Air Muscle Strength and Tone: WNL Gait and Station: Steady [facility] Medications Reviewed: Side Effects, Benefits of Medication, Risks Allergies Reviewed: Yes Mental Status Exam General Appearance: Casual, Well Groomed, Good Eye Contact, Cooperative, Polite, Good Interaction Speech: Clear, Spontaneous, Normal Rate, Normal Rhythm, Normal Volume, Normal Tone Mood: Euthymic Affect: Full and Appropriate Thought Process: Organized, Logical, Goal Directed Thought Content: No Suicidal Ideation, No Homicidal Ideation, No Delusions, No Auditory Halllucinations, No Visual Hallucinations, No Thought Broadcasting, No Ideas of Reference, No Obsessions, No Compulsions, No Other Sensorium: Clear Cognition: Alert & Oriented-Person, Alert & Oriented-Place, Alert & Oriented- Time, Yokzt-Boupwieq-Wocontlnj Memory: Other (scored 14 on MOCA yesterday) Intelligence: Average Insight Judgment: Fair [facility] Assessment and Plan Glmb-ge-[id number] Encounter Date: November 13, 2018 Buri-hy-Gmnq Encounter Time: 08:30 [facility] Plan: Necessary Precautions, Individual/Group Therapy, Admin/Titrate Meds, Educate Patient Tobacco Medications: Started Multpiple Antipsychotics Used: No Problems: (1) Substance induced mood disorder (2) Methamphetamine dependence, continuous Status: Chronic MISTY BHANDARI MD November 13, 2018 21:20
[2018-11-14] MEDS: NICOTINE POLACRILEX 4 MG LOZG PO PRN ×10 (02:51→20:30)
[2018-11-14 03:15] VITALS: BP 102/73
[2018-11-14] MEDS: MENTHOL TOP PRN (06:08)
[2018-11-14] MEDS: CAMPHOR TOP PRN (06:08)
[2018-11-14] MEDS: ACETAMINOPHEN 500 MG TAB PO PRN ×2 (07:18→20:28)
[2018-11-14] MEDS: PANTOPRAZOLE SOD 40 MG TABEC PO SCH ×2 (08:03→20:28)
[2018-11-14] MEDS: TROLAMINE SALIC 10% CR 90GM TB TP SCH ×2 (08:03→20:28)
[2018-11-14] MEDS: ARIPiprazole 10 MG TAB PO SCH (08:03)
[2018-11-14] MEDS: GABAPENTIN 300 MG CAP PO SCH ×2 (08:03→20:28)
--- NOTE | 2018-11-14 09:56 | BHS Progress Note ---
[facility] - Subjective Progress Notes Subjective "It's been a roller coaster ride. 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," Depression 08/15, denies anger, anxiety 12/13, guilt/shame 04/14 Denies suicidal or homicidal ideation Pain increases with anxiety elevation Stressors: "I was stressed a lot yesterday because of my family." Pain 03/15 neck, also has lower back pain On probation for 2 1/2 years more, probation out of [place], got transferred to [place], has strike operations officer, Tanya, good rapport Suicidal Ideation: None Homicidal Ideation: None [facility] - Objective Physical Exam Vital Signs Medications (Trade) Dose Ordered Sig/Lucy Route PRN Reason Start Time Stop Time Status Last Admin Dose Admin Acetaminophen (Tylenol(*)325 Mg Tab (Or Equiv)) 650 mg Q4H PRN PO HEADACHE 11/09/18 23:25 11/11/18 10:58 DC 11/10/18 12:09 Acetaminophen (Tylenol(*)500 Mg Tab (Or Equiv)) 1,000 mg Q6H PRN PO PAIN 11/13/18 08:45 12/13/18 08:44 11/14/18 07:18 Acetaminophen/ Caffeine/ Pyrilamine (Midol Complete Caplet) 2 each Q8H PRN PO SEE COMMENT 11/13/18 10:50 12/13/18 08:44 11/13/18 12:16 Aripiprazole (Abilify 10 Mg Tab (Or Equiv)) 10 mg DAILY PO 11/10/18 09:00 12/10/18 00:00 11/14/18 08:03 Camphor/Menthol (Biofreeze Gel (Patient Own)) APPLY QID PRN TOP PAIN 11/12/18 13:30 12/12/18 13:29 11/14/18 06:08 Duloxetine HCl (Cymbalta 30 Mg Capcr (Or Equiv)) 90 mg HS PO 11/10/18 00:00 12/10/18 00:00 11/13/18 20:20 Gabapentin (Neurontin(*) 300 Mg Cap (Or Equiv)) 600 mg BID PO 11/13/18 21:00 12/12/18 20:59 11/14/18 08:03 Hydroxyzine Pamoate (Vistaril(*) 25 Mg Cap (Or Equiv)) May take 25mg or 50mg PRN Anxiety/ Insomnia. Q6H PRN PO ANXIETY/INSOMNIA 11/12/18 11:05 12/12/18 11:04 11/13/18 10:27 Nicotine Polacrilex (Commit 4 Mg Lozg (Or Equiv)) 4 mg Q1-2H PRN PO NICOTINE REPLACEMENT 11/09/18 23:40 12/09/18 23:39 11/14/18 08:03 Olanzapine (zyPREXA (OR EQUIV)) 5 mg PRN ONCE PO 11/10/18 12:20 11/10/18 12:57 DC 11/10/18 13:06 Pantoprazole Sodium (Protonix (*) (Or Equiv)) 40 mg BID PO 11/10/18 00:00 12/10/18 00:00 11/14/18 08:03 Tizanidine HCl (Zanaflex(*) 4 Mg Tab (Or Equiv)) 4 mg QHS PO 11/12/18 21:00 12/12/18 20:59 11/13/18 20:20 Tramadol HCl (Ultram(*) 50 Mg Tab (Or Equiv)) 1-2 TABS Q6H PRN PO PAIN 11/09/18 23:25 11/11/18 10:58 DC 11/10/18 08:42 Trolamine Salicylate (Arthritis Pain Medicine 10% Cream 90 Gm Tube) 1 gm QDAY PRN TP ADDITIONAL DOSE IF NEEDED 11/11/18 12:05 12/11/18 12:04 11/11/18 13:03 Deferred Allergies Coded Allergies Penicillins (Verified Allergy, Intermediate, FELT LIKE SKIN WAS ON FIRE, 11/09/18) Sulfa (Sulfonamide Antibiotics) (Verified Allergy, Intermediate, RED BLOTCHES, 11/09/18) Muscle Strength and Tone: WNL Gait and Station: Steady [facility] Medications Reviewed: Side Effects, Benefits of Medication, Risks Allergies Reviewed: Yes Mental Status Exam General Appearance: Casual, Well Groomed, Good Eye Contact, Cooperative, Kalpesh ite, Good Interaction Speech: Clear, Spontaneous, Normal Rate, Normal Rhythm, Normal Volume, Normal Tone Mood: Dysthmic/Depressed; No Euthymic (rating depression 2/10) Affect: Full and Appropriate Thought Process: Organized, Logical, Goal Directed Thought Content: No Suicidal Ideation, No Homicidal Ideation, No Delusions, No Auditory Halllucinations, No Visual Hallucinations, No Thought Broadcasting, No Ideas of Reference, No Obsessions, No Compulsions, No Other Sensorium: Clear Cognition: Alert & Oriented-Person, Alert & Oriented-Place, Alert & Oriented- Time, Ztwgt-Nadkxoga-Nlggpczry Memory: Other (scored 14 on MOCA yesterday) Intelligence: Average Insight Judgment: Fair Microbiology Current Medications Medications (Trade) Dose Ordered Sig/Lucy Route PRN Reason Start Time Stop Time Status Last Admin Dose Admin Acetaminophen (Tylenol(*)325 Mg Tab (Or Equiv)) 650 mg Q4H PRN PO HEADACHE 11/09/18 23:25 11/11/18 10:58 DC 11/10/18 12:09 Al Hydrox/Mg Hydrox/Simethicone (Maalox(*) 30 ml Udcup (Or Equiv)) 30 ml Q6H PRN PO HEARTBURN 11/09/18 23:25 12/09/18 23:24 Aripiprazole (Abilify 10 Mg Tab (Or Equiv)) 10 mg HS PO 11/10/18 00:00 11/10/18 00:00 DC Duloxetine HCl (Cymbalta 30 Mg Capcr (Or Equiv)) 90 mg HS PO 11/10/18 00:00 12/10/18 00:00 11/13/18 20:20 Pantoprazole Sodium (Protonix (*) (Or Equiv)) 40 mg BID PO 11/10/18 00:00 12/10/18 00:00 11/14/18 08:03 Tramadol HCl (Ultram(*) 50 Mg Tab (Or Equiv)) 1-2 TABS Q6H PRN PO PAIN 11/09/18 23:25 11/11/18 10:58 DC 11/10/18 08:42 Hydroxyzine Pamoate (Vistaril(*) 25 Mg Cap (Or Equiv)) 50 mg Q6H PRN PO ANXIETY/INSOMNIA 11/09/18 23:30 11/12/18 11:03 DC 11/12/18 10:59 Nicotine Polacrilex (Commit 4 Mg Lozg (Or Equiv)) 4 mg Q1-2H PRN PO NICOTINE REPLACEMENT 11/09/18 23:40 12/09/18 23:39 11/14/18 08:03 Aripiprazole (Abilify 10 Mg Tab (Or Equiv)) 10 mg DAILY PO 11/10/18 09:00 12/10/18 00:00 11/14/18 08:03 Olanzapine (zyPREXA (OR EQUIV)) 5 mg PRN ONCE PO 11/10/18 12:20 11/10/18 12:57 DC 11/10/18 13:06 Gabapentin (Neurontin(*) 300 Mg Cap (Or Equiv)) 300 mg BID PO 11/11/18 11:00 11/12/18 10:25 DC 11/12/18 08:16 Acetaminophen (Tylenol(*)500 Mg Tab (Or Equiv)) 1,000 mg Q6H PRN PO PAIN 11/11/18 11:00 11/13/18 08:50 DC 11/13/18 08:23 Trolamine Salicylate (Arthritis Pain Medicine 10% Cream 90 Gm Tube) 1 gm BID TP 11/11/18 11:50 12/11/18 11:49 11/14/18 08:03 Trolamine Salicylate (Arthritis Pain Medicine 10% Cream 90 Gm Tube) 1 gm QDAY PRN TP ADDITIONAL DOSE IF NEEDED 11/11/18 12:05 12/11/18 12:04 11/11/18 13:03 Gabapentin (Neurontin(*) 300 Mg Cap (Or Equiv)) 600 mg BID PO 11/12/18 21:00 11/13/18 08:35 DC 11/13/18 08:24 Gabapentin (Neurontin(*) 300 Mg Cap (Or Equiv)) 300 mg ONCE ONCE PO 11/12/18 11:00 11/12/18 11:01 DC 11/12/18 10:57 Hydroxyzine Pamoate (Vistaril(*) 25 Mg Cap (Or Equiv)) May take 25mg or 50mg PRN Anxiety/ Insomnia. Q6H PRN PO ANXIETY/INSOMNIA 11/12/18 11:05 12/12/18 11:04 11/13/18 10:27 Tizanidine HCl (Zanaflex(*) 4 Mg Tab (Or Equiv)) 4 mg QHS PO 11/12/18 21:00 12/12/18 20:59 11/13/18 20:20 Camphor/Menthol (Biofreeze Gel (Patient Own)) APPLY QID PRN TOP PAIN 11/12/18 13:30 12/12/18 13:29 11/14/18 06:08 Gabapentin (Neurontin(*) 300 Mg Cap (Or Equiv)) 600 mg TID PO 11/13/18 09:00 11/13/18 10:59 DC Acetaminophen (Tylenol(*)500 Mg Tab (Or Equiv)) 1,000 mg Q6H PRN PO PAIN 11/13/18 08:45 12/13/18 08:44 11/14/18 07:18 Miscellaneous Information (Patient'S Own Med) 1 ea Q8H PRN PO SEE COMMENT 11/13/18 08:45 11/13/18 10:45 DC Acetaminophen/ Caffeine/ Pyrilamine (Midol Complete Caplet) 2 each Q8H PRN PO SEE COMMENT 11/13/18 10:50 12/13/18 08:44 11/13/18 12:16 Gabapentin (Neurontin(*) 300 Mg Cap (Or Equiv)) 600 mg BID PO 11/13/18 21:00 12/12/18 20:59 11/14/18 08:03 Laboratory Tests 11/09/18 21:05: Free Thyroxine 1.11, Free Triiodothyronine 3.9 [facility] Assessment and Plan [id number] Encounter Date: November 14, 2018 Sfbw-[id number]-Myrh Encounter Time: 09:44 [facility] Plan: Necessary Precautions, Individual/Group Therapy, Admin/Titrate Meds, Educate Patient Tobacco Medications: Started Multpiple Antipsychotics Used: No Problems: (1) Methamphetamine dependence, continuous Status: Chronic (2) Alcohol use disorder, moderate, in early remission Status: Chronic (3) Cannabis use disorder, moderate, dependence Status: Chronic (4) Chronic pain syndrome Status: Chronic Condition Continue current medications and treatment Review non-pharmacological pain management options Will return to [facility] for residential treatment upon discharge JOSEPH MARIE NP November 14, 2018 09:55
[2018-11-14] MEDS: hydrOXYzine PAMOATE 25 MG CAP PO PRN (10:15)
[2018-11-14 13:00] VITALS: BP 118/80
[2018-11-14] MEDS: TROLAMINE SALIC 10% CR 90GM TB TP PRN (17:08)
[2018-11-14 20:19] VITALS: BP 136/76
[2018-11-14] MEDS: DULoxetine HCL 30 MG CAPCR PO SCH (20:28)
[2018-11-15] MEDS: NICOTINE POLACRILEX 4 MG LOZG PO PRN ×12 (05:42→20:17)
[2018-11-15] MEDS: CAMPHOR TOP PRN ×3 (05:43→20:21)
[2018-11-15] MEDS: MENTHOL TOP PRN ×3 (05:43→20:21)
[2018-11-15 06:45] VITALS: BP 104/67
[2018-11-15] MEDS: ARIPiprazole 10 MG TAB PO SCH (07:49)
[2018-11-15] MEDS: TROLAMINE SALIC 10% CR 90GM TB TP SCH ×2 (07:49→20:21)
[2018-11-15] MEDS: PANTOPRAZOLE SOD 40 MG TABEC PO SCH ×2 (07:49→20:17)
[2018-11-15] MEDS: ACETAMINOPHEN 500 MG TAB PO PRN ×2 (07:50→20:17)
[2018-11-15] MEDS: GABAPENTIN 300 MG CAP PO SCH ×3 (07:50→20:17)
[2018-11-15] MEDS: hydrOXYzine PAMOATE 25 MG CAP PO PRN ×3 (07:55→20:17)
[2018-11-15] MEDS ORDERED: traMADol 50 MG TAB PO ONE (11:45)
--- NOTE | 2018-11-15 12:45 | BHS Progress Note ---
[facility] - Subjective Progress Notes Subjective Pt seen in team meeting with her PO Tanya on speaker phone and her son present. Pt is still focused on going back to [facility] to finish rehab treatment, and she is participating actively in groups and individual therapies. Pt still having cervical and L shoulder pain, and we discussed various ways of managing-- she is using heat/ice, tylenol. We will increase gabapentin today to 600 mg TID. Maya is checking with [facility] as to when a bed will be available, and her son said he could drive her up there on if need be. Continue current tx plan, increase gabapentin. Suicidal Ideation: None Homicidal Ideation: None [facility] - Objective Physical Exam Vital Signs Vital Signs 11/14/18 11/15/18 20:19 06:45 Temp 97.7 Pulse 71 Resp 12 B/P (MAP) 104/67 (79) Pulse Ox 92 O2 Delivery Room Air Muscle Strength and Tone: WNL Gait and Station: Steady [facility] Medications Reviewed: Side Effects, Benefits of Medication, Risks Allergies Reviewed: Yes Mental Status Exam General Appearance: Casual, Well Groomed, Good Eye Contact, Cooperative, Polite, Good Interaction Speech: Clear, Spontaneous, Normal Rate, Normal Rhythm, Normal Volume, Normal Tone Mood: Dysthmic/Depressed Affect: Full and Appropriate Thought Process: Organized, Logical, Goal Directed Thought Content: No Suicidal Ideation, No Homicidal Ideation, No Delusions, No Auditory Halllucinations, No Visual Hallucinations, No Thought Broadcasting, No Ideas of Reference, No Obsessions, No Compulsions, No Other Sensorium: Clear Cognition: Alert & Oriented-Person, Alert & Oriented-Place, Alert & Oriented- Time, Kkwgt-Thwxhwfx-Xmqtagmti Memory: Other Intelligence: Average Insight Judgment: Fair [facility] Assessment and Plan Fxmb-wn-Pobg Encounter Date: November 15, 2018 Gted-sq-[id number] Encounter Time: 10:00 [facility] Plan: Necessary Precautions, Individual/Group Therapy, Admin/Titrate Meds, Educate Patient Tobacco Medications: Started Multpiple Antipsychotics Used: No Problems: (1) Substance induced mood disorder (2) Methamphetamine dependence, continuous Status: Chronic MISTY BHANDARI MD November 15, 2018 12:45
[2018-11-15] MEDS: DULoxetine HCL 30 MG CAPCR PO SCH (20:16)
[2018-11-15 22:08] VITALS: BP 104/75
[2018-11-16] MEDS: NICOTINE POLACRILEX 4 MG LOZG PO PRN ×11 (04:13→20:55)
[2018-11-16 06:05] VITALS: BP 90/60
[2018-11-16] MEDS: ACETAMINOPHEN 500 MG TAB PO PRN (07:04)
[2018-11-16] MEDS: GABAPENTIN 300 MG CAP PO SCH ×3 (08:11→20:20)
[2018-11-16] MEDS: ARIPiprazole 10 MG TAB PO SCH (08:11)
[2018-11-16] MEDS: PANTOPRAZOLE SOD 40 MG TABEC PO SCH ×2 (08:14→20:20)
[2018-11-16] MEDS: TROLAMINE SALIC 10% CR 90GM TB TP SCH ×2 (09:00→20:20)
[2018-11-16 09:13] VITALS: BP 117/96
[2018-11-16 12:25] VITALS: BP 118/74
[2018-11-16] MEDS: TROLAMINE SALIC 10% CR 90GM TB TP PRN (12:36)
[2018-11-16] MEDS: ACETAMINOPHEN PO PRN (14:15)
[2018-11-16] MEDS: CAFFEINE PO PRN (14:15)
[2018-11-16] MEDS: PYRILAMINE PO PRN (14:15)
--- NOTE | 2018-11-16 14:19 | BHS Progress Note ---
[facility] - Subjective Progress Notes Subjective Pt seen in conference room with team. Pt continues to improve in terms of pain control, she is tolerating the gabapentin and finds it helpful. She is still motivated to go back to [facility]. We spoke with public health outreach worker there today to report that pt is medically stable for return to detox. They will present it to their team and let us know when a bed is available. Continue current tx plan. Suicidal Ideation: None Homicidal Ideation: None [facility] - Objective Physical Exam Vital Signs Vital Signs 11/16/18 12:25 Temp 99.2 Pulse 89 Resp 16 B/P (MAP) 118/74 (89) Pulse Ox 93 O2 Delivery Room Air Muscle Strength and Tone: WNL Gait and Station: Steady [facility] Medications Reviewed: Side Effects, Benefits of Medication, Risks Allergies Reviewed: Yes Mental Status Exam General Appearance: Casual, Well Groomed, Good Eye Contact, Cooperative, Polite, Good Interaction Speech: Clear, Spontaneous, Normal Rate, Normal Rhythm, Normal Volume, Normal Tone Mood: Dysthmic/Depressed Affect: Full and Appropriate Thought Process: Organized, Logical, Goal Directed Thought Content: No Suicidal Ideation, No Homicidal Ideation, No Delusions, No Auditory Halllucinations, No Visual Hallucinations, No Thought Broadcasting, No Ideas of Reference, No Obsessions, No Compulsions, No Other Sensorium: Clear Cognition: Alert & Oriented-Person, Alert & Oriented-Place, Alert & Oriented- Time, Yaesf-Dbktiypt-Hhgsjgume Memory: Other Intelligence: Average Insight Judgment: Fair [facility] Assessment and Plan [id number]-fv-[id number] Encounter Date: November 16, 2018 Rdlj-[id number] Encounter Time: 10:45 [facility] Plan: Necessary Precautions, Individual/Group Therapy, Admin/Titrate Meds, Educate Patient Tobacco Medications: Started Multpiple Antipsychotics Used: No Problems: (1) Substance induced mood disorder (2) Methamphetamine dependence, continuous Status: Chronic MISTY BHANDARI MD November 16, 2018 14:19
[2018-11-16] MEDS: DULoxetine HCL 30 MG CAPCR PO SCH (20:19)
[2018-11-16 21:09] VITALS: BP 113/89
[2018-11-16] MEDS: hydrOXYzine PAMOATE 25 MG CAP PO PRN (22:05)
[2018-11-17] MEDS: NICOTINE POLACRILEX 4 MG LOZG PO PRN ×11 (03:40→21:30)
[2018-11-17 06:18] VITALS: BP 90/62
[2018-11-17] MEDS: ACETAMINOPHEN 500 MG TAB PO PRN (06:18)
[2018-11-17] MEDS: MENTHOL TOP PRN ×3 (07:24→17:51)
[2018-11-17] MEDS: CAMPHOR TOP PRN ×3 (07:24→17:51)
[2018-11-17] MEDS: ARIPiprazole 10 MG TAB PO SCH (08:24)
[2018-11-17] MEDS: PANTOPRAZOLE SOD 40 MG TABEC PO SCH ×2 (08:24→20:48)
[2018-11-17] MEDS: GABAPENTIN 300 MG CAP PO SCH ×3 (08:24→20:48)
[2018-11-17] MEDS: TROLAMINE SALIC 10% CR 90GM TB TP SCH ×2 (08:26→20:49)
[2018-11-17] MEDS ORDERED: ARIPiprazole 10 MG TAB PO ONE (11:00)
--- NOTE | 2018-11-17 14:20 | BHS Progress Note ---
[facility] - Subjective Progress Notes Subjective Pt seen in treatment team with her son and Rossi from [employer] present, and Tanya form [employer] on speaker phone. Pt doing better, her mood is good, pain is under better control, she has been participating in groups and individual therapies, she is still motivated to go to rehab. We are still waiting to see if she gets back in to [facility]-- we will also fax an application to [facility] so that we have a back up plan if need be. Will increase abilify to 15 mg due to pt's c/o intermittent VH of mice. Continue other meds as ordered. Suicidal Ideation: None Homicidal Ideation: None [facility] - Objective Physical Exam Vital Signs Vital Signs 11/16/18 11/17/18 12:25 06:18 Temp 98.2 Pulse 99 Resp 16 B/P (MAP) 90/62 (71) Pulse Ox 91 O2 Delivery Room Air Muscle Strength and Tone: WNL Gait and Station: Steady [facility] Medications Reviewed: Side Effects, Benefits of Medication, Risks Allergies Reviewed: Yes Mental Status Exam General Appearance: Casual, Well Groomed, Good Eye Contact, Cooperative, Polite, Good Interaction Speech: Clear, Spontaneous, Normal Rate, Normal Rhythm, Normal Volume, Normal Tone Mood: Dysthmic/Depressed Affect: Full and Appropriate Thought Process: Organized, Logical, Goal Directed Thought Content: No Suicidal Ideation, No Homicidal Ideation, No Delusions, No Auditory Halllucinations, No Visual Hallucinations, No Thought Broadcasting, No Ideas of Reference, No Obsessions, No Compulsions, No Other Sensorium: Clear Cognition: Alert & Oriented-Person, Alert & Oriented-Place, Alert & Oriented- Time, Ujjah-Nfgyhmsb-Zqnpbhbph Memory: Other Intelligence: Average Insight Judgment: Fair [facility] Assessment and Plan [id number] Encounter Date: November 17, 2018 Xtft-ne-Yntl Encounter Time: 11:00 [facility] Plan: Necessary Precautions, Individual/Group Therapy, Admin/Titrate Meds, Educate Patient Tobacco Medications: Started Multpiple Antipsychotics Used: No Problems: (1) Substance induced mood disorder (2) Methamphetamine dependence, continuous Status: Chronic MISTY BHANDARI MD November 17, 2018 14:19
[2018-11-17 20:17] VITALS: BP 94/67
[2018-11-17] MEDS: DULoxetine HCL 30 MG CAPCR PO SCH (20:48)
[2018-11-18] MEDS: NICOTINE POLACRILEX 4 MG LOZG PO PRN ×13 (00:20→23:45)
[2018-11-18 05:51] VITALS: BP 98/60
[2018-11-18] MEDS: PANTOPRAZOLE SOD 40 MG TABEC PO SCH ×2 (08:08→20:25)
[2018-11-18] MEDS: GABAPENTIN 300 MG CAP PO SCH ×3 (08:08→20:25)
[2018-11-18] MEDS: ARIPiprazole 10 MG TAB PO SCH (08:08)
[2018-11-18] MEDS: MENTHOL TOP PRN ×2 (08:10→20:47)
[2018-11-18] MEDS: TROLAMINE SALIC 10% CR 90GM TB TP SCH ×2 (08:10→20:26)
[2018-11-18] MEDS: CAMPHOR TOP PRN ×2 (08:10→20:47)
[2018-11-18] MEDS: ACETAMINOPHEN 500 MG TAB PO PRN ×2 (09:50→20:25)
[2018-11-18] MEDS ORDERED: IBUPROFEN 200 MG TAB PO ONE (10:25)
[2018-11-18 10:40] VITALS: BP 105/75
[2018-11-18] MEDS: DULoxetine HCL 30 MG CAPCR PO SCH (20:26)
[2018-11-18] MEDS: hydrOXYzine PAMOATE 25 MG CAP PO PRN (21:41)
[2018-11-18 22:23] VITALS: BP 107/71
[2018-11-19] MEDS: NICOTINE POLACRILEX 4 MG LOZG PO PRN ×8 (03:31→13:45)
[2018-11-19] MEDS: CAMPHOR TOP PRN ×2 (04:41→09:21)
[2018-11-19] MEDS: MENTHOL TOP PRN ×2 (04:41→09:21)
[2018-11-19 05:24] VITALS: BP 108/76
[2018-11-19] MEDS: ACETAMINOPHEN 500 MG TAB PO PRN ×2 (08:14→14:22)
[2018-11-19] MEDS: PANTOPRAZOLE SOD 40 MG TABEC PO SCH (08:14)
[2018-11-19] MEDS: ARIPiprazole 10 MG TAB PO SCH (08:14)
[2018-11-19] MEDS: GABAPENTIN 300 MG CAP PO SCH ×2 (08:14→13:45)
[2018-11-19] MEDS ORDERED: IBUPROFEN 200 MG TAB PO SCH (09:00)
[2018-11-19] MEDS: TROLAMINE SALIC 10% CR 90GM TB TP SCH (09:21)
[2018-11-19] MEDS: hydrOXYzine PAMOATE 25 MG CAP PO PRN (12:47)
[2018-11-19] MEDS ORDERED: TROL85CR TP (13:57)
[2018-11-19] MEDS ORDERED: IBUP-1671 PO (13:58)
[2018-11-19] MEDS ORDERED: GABA-1 PO (13:59)
[2018-11-19] MEDS ORDERED: MENT118G TP (14:00)
[2018-11-19] MEDS ORDERED: NICO4LOZ35 BC (14:01)
[2018-11-19] MEDS ORDERED: [UNRECOGNIZED DRUG - CODE] PO (14:02)
[2018-11-19] MEDS ORDERED: ACET500T68 PO (14:03)
--- NOTE | 2018-11-19 14:09 | BHS Discharge Summary ---
[facility] Discharge Summary Skpz-jn-Dzhz Encounter Date: November 19, 2018 Aepp-ai-Lwvi Encounter Time: 10:00 Reason-Hosp/Final Diag (DSM-V): (1) Methamphetamine dependence, continuous Status: Chronic Hospital Course & Plan: DATE OF ADMISSION: November 09, 2018 ATTENDING PHYSICIAN Misty Bhandari MD The patient was interviewed on November 10, 2018, at 9 a.m. for this history and physical. CHIEF COMPLAINT "I had a suicide attempt Thursday, plus I'm still suicidal." HISTORY OF PRESENT ILLNESS This is one of multiple Behavioral Health admissions for this 42-year-old female who has a history of methamphetamine abuse, mood disorder, and likely borderline personality disorder, who is here on a voluntary basis for suicidal ideation and behavior. The patient was last here in 2016. She says that since then, she has been using drugs, mostly methamphetamine, also some alcohol and some marijuana. She says that she got into an argument with her on Thursday because her was mad at her for giving money to her son. She tried to cut her wrist on Thursday and did make a laceration, but did not seek any treatment. Then, she continued to have sporadic suicidal ideation, and so yesterday, Thursday, she did come to the Emergency Room. In the ER, her wrist was examined, and there is about a 2-inch laceration of her left forearm which is scabbed over and does not appear to be infected. She continued to complain of suicidal thinking and was referred for admission to [facility]. Today, she says that her depression is high, rating it at a 9/10. She acknowledges that she used methamphetamine yesterday, the day of admission. She reports that she was recently at an inpatient rehab at [facility] in [place] for three weeks in the beginning of October, but that she was discharged medically because of neck pain. She says she would like to return to [facility] after she finishes up with the workup of her neck. HOSPITAL COURSE Pt was admitted to [facility] and maintained on suicide precautions. Pt was very cooperative and was actively engaged in her treatment, attending all groups, and seemed genuinely to desire to return to rehab and get help for her meth addiction. Her family participated in treatment teams, as did her P.O., and all were supportive of her desire for treatment. We did cervical MRI (results below) which showed arthritic changes, this was reviewed with hospitalist who felt no need for further work-up, use conservative measures including neurontin, heat, stretching, tylenol prn, zanaflex. Pt tolerated these measures and medication well. We also discussed her hx of ovarian cysts with medicine who suggested she try Midol Complete for ovarian pain, and she did find this helpful for montly ovarian pain-- she knows not to take tylenol during the time she is using Midol. We worked with her on managing chronic pain, trying to help her use relaxation, mindfulness techniques, warning her that her focus on the pain threatens to derail her sobriety work. She did make gains and she felt the gabapentin at 600 mg TID was very helpful-- though she still remains somatically preoccupied, and she tended to watch the clock for when her tylenol was due. She denied SI throughout her stay and affect was generally bright. We made applica tions to [facility] and back to [facility], and these applications were complete at time of discharge-- these facilities will be in touch with pt's P.O. when they get a bed date for her. (2) Substance induced mood disorder Physical Exam Latest Vital Signs Vital Signs 11/19/18 05:24 Temp 97.4 Pulse 102 Resp 15 B/P (MAP) 108/76 (87) Pulse Ox 92 O2 Delivery Room Air Mental Status Exam General Appearance: Casual, Well Groomed, Good Eye Contact, Cooperative, Polite, Good Interaction Speech: Clear, Spontaneous, Normal Rate, Normal Rhythm, Normal Volume, Normal Tone Mood: Euthymic Affect: Full and Appropriate Thought Process: Organized, Logical, Goal Directed Thought Content: No Suicidal Ideation, No Homicidal Ideation, No Delusions, No Auditory Halllucinations, No Visual Hallucinations, No Thought Broadcasting, No Ideas of Reference, No Obsessions, No Compulsions, No Other Sensorium: Clear Cognition: Alert & Oriented-Person, Alert & Oriented-Place, Alert & Oriented- Time, Rfbih-Kkmhxold-Tvcsoqnkz Memory: Other Intelligence: Average Insight Judgment: Fair Departure Item Value Date Time Free Thyroxine 1.11 ng/dl 11/09/182104 Free Triiodothyronine 3.9 pg/mL 11/09/182104 Tuberculin Skin Test 0 mm 11/17/18 111 White Blood Count 7.2 k/uL 11/09/182104 Red Blood Count 5.30 M/uL 11/09/182104 Hemoglobin 16.7 g/dL H 11/09/182104 Hematocrit 48.7 % H 11/09/182104 Mean Corpuscular Volume 92.1 fL 11/09/182104 Mean Corpuscular Hemoglobin 31.5 pg 11/09/182104 Mean Corpuscular Hemoglobin Concent 34.2 g/dL 11/09/182104 Red Cell Distribution Width 14.0 % 11/09/182104 Platelet Count 328 K/uL 11/09/182104 Sodium Level 138 mmol/L 11/09/182104 Potassium Level 3.2 mmol/L L 11/09/182104 Chloride Level 106 mmol/L 11/09/182104 Carbon Dioxide Level 21 mmol/L L 11/09/182104 Blood Urea Nitrogen 9 mg/dl 11/09/182104 Creatinine 0.60 mg/dl 11/09/182104 Glomerular Filtration Rate Calc > 60.0 11/09/182104 Random Glucose 115 mg/dl H 11/09/182104 Calcium Level 9.2 mg/dl 11/09/182104 Magnesium Level 2.0 mg/dl 11/09/182104 Total Bilirubin 0.6 mg/dl 11/09/182104 Aspartate Amino Transf (AST/SGOT) 25 U/L 11/09/182104 Alanine Aminotransferase (ALT/SGPT) 18 U/L 11/09/182104 Alkaline Phosphatase 84 U/L 11/09/182104 Total Protein 7.5 g/dl 11/09/182104 Albumin 4.8 g/dl 11/09/182104 Thyroid Stimulating Hormone (TSH) 6.87 uIU/ml H 11/09/182104 Free Thyroxine 1.11 ng/dl 11/09/182104 Free Triiodothyronine 3.9 pg/mL 11/09/182104 Urine Color Yellow 11/09/182049 Urine Appearance Sl cloudy 10/30/11 154 Urine Clarity Clear 11/09/182049 Urine pH 5.0 pH 11/09/182049 Urine Specific [place] 1.025 11/09/182049 Urine Protein Negative mg/dL 11/09/182049 Urine Glucose (UA) Negative mg/dL 11/09/182049 Urine Ketones Trace mg/dL 11/09/182049 Urine Blood Moderate 11/09/182049 Urine Nitrite Negative 11/09/182049 Urine Bilirubin Negative 11/09/182049 Urine Urobilinogen 2.0 mg/dL 11/09/182049 Urine Leukocyte Esterase Negative 11/09/182049 Urine RBC 22 /HPF 11/09/182049 Urine WBC 1 /HPF 11/09/182049 Urine Squamous Epithelial Cells Many /LPF H 11/09/182049 Salicylates Level < 10 mg/L 11/09/182104 Salicylate Last Dose Date unk 11/09/182104 Urine Opiates Screen Negative 11/09/182049 Acetaminophen Level < 10 ug/ml 11/09/182104 Urine Barbiturates Screen Negative 11/09/182049 Ur Tricyclic Antidepressants Screen Negative 11/09/182049 Urine Phencyclidine Screen Negative 11/09/182049 Urine Amphetamines Screen Positive 11/09/182049 Urine Benzodiazepines Screen Negative 11/09/182049 Urine Cocaine Screen Negative 11/09/182049 Urine Cannabinoids Screen Positive 11/09/182049 Serum Alcohol < 10 mg/dl 11/09/182104 Condition: Improved Discharge to: Home Discharge Instructions Home Meds Active Scripts Pantoprazole Sodium (PANTOPRAZOLE SODIUM) 40 Mg Tablet.dr, 1 TAB PO BID, #60 TAB 3 Refills Take on an empty stomach and wait 30 minutes before eating. Prov:AMADEO ROBERTS MD 07/21/18 Reported Medications Tizanidine Hcl (TIZANIDINE HCL) 4 Mg Tablet, 1 TAB PO HS 11/11/18 Duloxetine Hcl (CYMBALTA) 30 Mg Capsule.dr, 90 MG PO HS, #5 CAP 11/09/18 Aripiprazole (ABILIFY) 10 Mg Tablet, 10 MG PO QDAY, TAB 11/09/18 Multpiple Antipsychotics Used: No Diet: Regular Activity: As Tolerated Special Instructions: Discharge home. Follow-up with outpatient therapy and medication management. Follow-up with Primary Care Provider for medical concerns. Abstain from alcohol and all illicit substances. Call crisis line or return to Emergency Room for any suicidal or homicidal thoughts. MISTY BHANDARI MD November 19, 2018 14:09
== END 2018-11-19 15:00 | disposition home or self-care (01) | DRG 897 ==
LOC: BHS 22:11
PROVIDERS: ADMIT Psychiatry & Neurology Psychiatry; ATTEND Psychiatry & Neurology Psychiatry
DX: F15.24 Other stimulant dependence with stimulant-induced mood disorder (principal); R45.851 Suicidal ideations; F60.3 Borderline personality disorder; F10.21 Alcohol dependence, in remission; G89.4 Chronic pain syndrome; M46.92 Unspecified inflammatory spondylopathy, cervical region; Y90.0 Blood alcohol level of less than 20 mg/100 ml; Z88.2 Allergy status to sulfonamides; Z88.0 Allergy status to penicillin; Z90.49 Acquired absence of other specified parts of digestive tract
CPT/HCPCS: 36415; 36416; 72141; 80305; 80320; 80329; 81001; 82040; 82247; 82310; 82374; 82435; 82565; 82947; 82948; 83735; 84075; 84132; 84155; 84295; 84439; 84443; 84450; 84460; 84481; 84520; 85025; 86580; 90471; 90715; 93005; 99284; Q0177

== ENCOUNTER 2018-11-20 17:35 | Emergency (ER) | payer MEDICAID ==
[2016-05-15 08:53] VITALS: Wt 73.5 kg
[~2018-11-20 17:35] MED LIST changes: +ACET500T68 PO; +GABA-1 PO; +IBUP-1671 PO; +MENT118G TP; +TIZA-128 PO; +TROL85CR TP; +[UNRECOGNIZED DRUG - CODE] PO
--- NOTE | 2018-11-20 17:52 | ER Report ---
History and Physical Time Seen By MD: 17:51 HPI/ROS CHIEF COMPLAINT: Chest pain HISTORY OF PRESENT ILLNESS: This is a 43-year-old female presents to the emergency room for chest pain. Patient states that she developed left anterior chest pain that was intermittent mid morning, radiating up to her jaw, she also states that she had pressure in her chest and a stabbing sensation in the left anterior chest. She denies trauma, was laying in bed when the pain developed. She does have a long history of smoking, she states she's cut back from 3 packs a day to now about half pack a day. Intermittent nausea no vomiting. No diaphoresis. No rashes. No fevers or chills. No other complaints. REVIEW OF SYSTEMS: Constitutional: No fever, no chills. Eyes: No discharge. ENT: No sore throat. Cardiovascular: As above. Respiratory: No cough, no shortness of breath. Gastrointestinal: No abdominal pain, no vomiting. Genitourinary: No hematuria. Musculoskeletal: No back pain. Skin: No rashes. Neurological: No headache. Allergies: Coded Allergies: Penicillins (Verified Allergy, Intermediate, FELT LIKE SKIN WAS ON FIRE, 11/09/18) Sulfa (Sulfonamide Antibiotics) (Verified Allergy, Intermediate, RED BLOTCHES, 11/09/18) Home Meds Active Scripts Pantoprazole Sodium (PANTOPRAZOLE SODIUM) 40 Mg Tablet.dr, 1 TAB PO BID, #60 TAB 3 Refills Take on an empty stomach and wait 30 minutes before eating. Prov:AMADEO ROBERTS MD 07/21/18 Reported Medications Acetaminophen (TYLENOL EXTRA STRENGTH) 500 Mg Tablet, 1000 MG PO Q8H PRN for PAIN, TAB May not use when using Midol. 11/19/18 Acetaminophn/Pyril Mal/Caffein (MIDOL COMPLETE CAPLET) 1 Each Tablet, 2 EACH PO Q8H PRN for PAIN 11/19/18 Nicotine Polacrilex (NICOTINE LOZENGE) 4 Mg Lozenge, 4 MG BC Q1-2H PRN for NICOTINE REPLACEMENT, LOZENGE 11/19/18 Menthol (BIOFREEZE) 118 Ml Gel..ml., 1 COLLIN TP QID PRN for PAIN 11/19/18 Gabapentin (NEURONTIN) 600 Mg Tablet, 600 MG PO TID 11/19/18 Ibuprofen (MOTRIN IB) 200 Mg Tablet, 2 TAB PO BID 11/19/18 Trolamine Salicylate (ARTHRICREME) 85 Gm Cream..g., 1 GM TP BID 11/19/18 Tizanidine Hcl (TIZANIDINE HCL) 4 Mg Tablet, 1 TAB PO HS 11/11/18 Duloxetine Hcl (CYMBALTA) 30 Mg Capsule.dr, 90 MG PO HS, #5 CAP 11/09/18 Aripiprazole (ABILIFY) 10 Mg Tablet, 15 MG PO QDAY, TAB 11/09/18 Past Medical/Surgical History The patient has a past medical and surgical history of migraines, seizures, arrhythmias, anxiety, occasionally has irregular heartbeat secondary to stress, IBS, area tract infections, ovarian cysts, degenerative disc disease of the cervical spine, arthritis, ankle fracture, chronic low back pain, sciatica, bulging disks, wears glasses, hard of hearing, hypoglycemia, lupus, rash or lupus, meth use, marijuana use, anxiety, PTSD, borderline personality, partial hysterectomy, cystography, hysterectomy, tubal ligation. Reviewed Nurses Notes: Yes Hx Smoking: Yes Smoking Status: Current: Every Day Smoker Exposure to Second Hand Smoke?: Yes Hx Substance Use Disorder: Yes (METH; WEED NO LONGER USING) Hx Alcohol Use: Yes Constitutional Vital Sign - Last 24 Hours 11/20/18 18:16 Temp 97.7 Pulse 86 Resp 20 B/P (MAP) 128/88 Pulse Ox 94 O2 Delivery Room Air Physical Exam General Appearance: The patient is alert, has no immediate need for airway protection and no signs of toxicity. Eyes: Pupils equal and round no pallor or injection. ENT, Mouth: Mucous membranes are moist. Respiratory: There are no retractions, lungs are clear to auscultation. Cardiovascular: Regular rate and rhythm. No murmurs, clicks or rubs. Gastrointestinal: Abdomen is soft and non tender, no masses, bowel sounds normal. Neurological: Alert and oriented 4. Moving all extremities. Following all commands. No focal neuro deficits. Skin: Warm and dry, no rashes. Musculoskeletal: Neck is supple non tender. Pain to left anterior chest along the sternum with palpation, no bruising or crepitus identified. Extremities are nontender, nonswollen and have full range of motion. DIFFERENTIAL DIAGNOSIS: After history and physical exam differential diagnosis was considered for chest pain including but not limited to myocardial ischemia, pericarditis pulmonary embolus, chest wall pain, pleural inflammation and pulmonary infectious causes. Medical Decision Making Data Points Result Diagram: 11/20/18182811/20/181828 Laboratory Hematology Test 11/20/18 18:29 Red Blood Count 4.75 M/uL (4.17-5.56) Mean Corpuscular Volume 92.4 fL (80.0-96.0) Mean Corpuscular Hemoglobin 31.0 pg (26.0-33.0) Mean Corpuscular Hemoglobin Concent 33.5 g/dL (32.0-36.0) Red Cell Distribution Width 14.2 % (11.5-14.5) Mean Platelet Volume 8.1 fL (7.2-11.1) Neutrophils (%) (Auto) 62.6 % (39.4-72.5) Lymphocytes (%) (Auto) 26.3 % (17.6-49.6) Monocytes (%) (Auto) 7.1 % (4.1-12.4) Eosinophils (%) (Auto) 2.5 % (0.4-6.7) Basophils (%) (Auto) 1.5 % (0.3-1.4) Nucleated RBC Relative Count (auto) 0.0 /100WBC Neutrophils # (Auto) 4.1 K/uL (2.0-7.4) Lymphocytes # (Auto) 1.7 K/uL (1.3-3.6) Monocytes # (Auto) 0.5 K/uL (0.3-1.0) Eosinophils # (Auto) 0.2 K/uL (0.0-0.5) Basophils # (Auto) 0.1 K/uL (0.0-0.1) Nucleated RBC Absolute Count (auto) 0.00 K/uL D-Dimer Quantitative (PE/DVT) < 0.27 ug/ml (0-0.50) Sodium Level 137 mmol/L (137-145) Potassium Level 3.5 mmol/L (3.5-5.0) Chloride Level 106 mmol/L (98-107) Carbon Dioxide Level 24 mmol/L (22-31) Blood Urea Nitrogen 15 mg/dl (7-18) Creatinine 0.70 mg/dl (0.52-1.04) Glomerular Filtration Rate Calc > 60.0 Random Glucose 89 mg/dl (75-110) Calcium Level 8.7 mg/dl (8.4-10.2) Total Bilirubin 0.1 mg/dl (0.2-1.3) Aspartate Amino Transf (AST/SGOT) 37 U/L (0-35) Alanine Aminotransferase (ALT/SGPT) 40 U/L (0-56) Alkaline Phosphatase 95 U/L (0-126) Troponin I < 0.012 ng/ml Total Protein 6.8 g/dl (6.3-8.2) Albumin 4.2 g/dl (3.5-5.0) Chemistry Test 11/20/18 18:29 White Blood Count 6.6 k/uL (4.5-11.0) Red Blood Count 4.75 M/uL (4.17-5.56) Hemoglobin 14.7 g/dL (12.0-16.0) Hematocrit 43.9 % (34.0-47.0) Mean Corpuscular Volume 92.4 fL (80.0-96.0) Mean Corpuscular Hemoglobin 31.0 pg (26.0-33.0) Mean Corpuscular Hemoglobin Concent 33.5 g/dL (32.0-36.0) Red Cell Distribution Width 14.2 % (11.5-14.5) Platelet Count 301 K/uL (150-450) Mean Platelet Volume 8.1 fL (7.2-11.1) Neutrophils (%) (Auto) 62.6 % (39.4-72.5) Lymphocytes (%) (Auto) 26.3 % (17.6-49.6) Monocytes (%) (Auto) 7.1 % (4.1-12.4) Eosinophils (%) (Auto) 2.5 % (0.4-6.7) Basophils (%) (Auto) 1.5 % (0.3-1.4) Nucleated RBC Relative Count (auto) 0.0 /100WBC Neutrophils # (Auto) 4.1 K/uL (2.0-7.4) Lymphocytes # (Auto) 1.7 K/uL (1.3-3.6) Monocytes # (Auto) 0.5 K/uL (0.3-1.0) Eosinophils # (Auto) 0.2 K/uL (0.0-0.5) Basophils # (Auto) 0.1 K/uL (0.0-0.1) Nucleated RBC Absolute Count (auto) 0.00 K/uL D-Dimer Quantitative (PE/DVT) < 0.27 ug/ml (0-0.50) Glomerular Filtration Rate Calc > 60.0 Calcium Level 8.7 mg/dl (8.4-10.2) Total Bilirubin 0.1 mg/dl (0.2-1.3) Aspartate Amino Transf (AST/SGOT) 37 U/L (0-35) Alanine Aminotransferase (ALT/SGPT) 40 U/L (0-56) Alkaline Phosphatase 95 U/L (0-126) Troponin I < 0.012 ng/ml Total Protein 6.8 g/dl (6.3-8.2) Albumin 4.2 g/dl (3.5-5.0) Coagulation Test 11/20/18 18:29 D-Dimer Quantitative (PE/DVT) < 0.27 ug/ml EKG/Imaging EKG Interpretation 12 lead EKG: Time of EKG 1837. Rhythm: Normal sinus rhythm, ventricular rate 83 BPM. Celina: normal QRS: normal ST segments: No ST depression or elevation identified. Imaging PATIENT NAME: Terra Gomez : 1975 MR: [id number] V: [id number] EXAM DATE: ORDERING PHYSICIAN: LEDY HOWARD TECHNOLOGIST: Location: [facility] Patient: Terra Gomez : 1975 Visit/Account:[id number] Date of Sevice: 11/20/2018 Examination: CHEST PA LAT Comparison: 07/07/2018 and earlier. History: Chest pain for one day. History of smoking. Findings: No consolidation, nodule, or evidence of acute peribronchial inflammation. No pneumothorax, edema, or effusion. Cardiac and hilar contour size is within normal limits. Osseous structures are intact. IMPRESSION: No findings of acute cardiopulmonary disease. Report Dictated By: Marino Vasquez MD at 11/20/2018 7:39 PM Report E-Signed By: Marino Vasquez MD at 11/20/2018 7:44 PM WSN:[id number] ED Course/Re-evaluation Clinical Indication for ER IV: IV Access ED Course The patient was admitted to room. A history and physical were obtained. Differential diagnoses were obtained. An IV was started. A CBC, CMP, troponin and d-dimer were obtained. Laboratory studies unremarkable, negative d-dimer, negative troponin. EKG showing normal sinus rhythm. Chest x-ray showing no acute cardiopulmonary process. I did review the results with the patient, I did tell her this is likely musculoskeletal causing the discomfort. Patient did receive 324 chewable aspirin, she also received 15 mg IV Toradol. She did have some relief of her symptoms. Patient was given a lidocaine patch to the area of discomfort. Instructed to follow-up with her primary care provider early this next week for reevaluation, patient exposed understanding was discharged home. Decision to Disposition Date: November 20, 2018 Decision to Disposition Time: 20:26 Depart Departure Latest Vital Signs Vital Signs Date Time Temp Pulse Resp B/P (MAP) Pulse Ox O2 Delivery O2 Flow Rate FiO2 11/20/18 18:16 97.7 86 20 128/88 94 Room Air Impression: Primary Impression: Chest pain of unknown etiology Condition: Improved Disposition: HOME OR SELF-CARE Referrals: LIZA GREENFIELD (PCP) 2 Days Patient Instructions: Noncardiac Chest Pain (ED) Additional Instructions: There is no concerning findings on labs, xray and ekg today. Please continue regular medications as prescribed. Follow up with your PCP Thursday or Thursday for reevaluationn. Drink plenty of water. Continue cutting back on cigarettes. Remove the lidocaine patch in 12 hours. If the patch works you can purchase over the counter patches too. Return to the ED for any other concerns or worsening symptoms. LEDY HOWARD-BC November 20, 2018 17:52
[2018-11-20 18:46] LABS: PLATELET COUNT, AUTOMATED 301 K/uL (150-450)
[2018-11-20] MEDS ORDERED: ASPIRIN 81 MG CHEW PO ONE (18:50)
[2018-11-20] MEDS ORDERED: ONDANSETRON 4 MG/2 ML VIAL IVP ONE (18:50)
--- NOTE | 2018-11-20 19:01 | EKG ---
FACILITY: [facility] PATIENT NAME: SARAH GARCIA : [id number] MR: [id number] V: [id number] EXAM DATE: ORDERING PHYSICIAN: LEDY HOWARD TECHNOLOGIST: DREAD Test Reason : ARRYTHMIA Blood Pressure : / mmHG Vent. Rate : 083 BPM Atrial Rate : 083 BPM P-R Int : 168 ms QRS Dur : 082 ms QT Int : 384 ms P-R-T Axes : 046 032 032 degrees QTc Int : 451 ms Normal sinus rhythm Normal ECG When compared with ECG of 09-NOV-2018 22:24, No significant change was found Confirmed by Carmelo Liriano ([id number]) on 11/20/2018 9:50:46 PM Referred By: Confirmed By:Carmelo Parks
[2018-11-20] MEDS ORDERED: KETOROLAC 15 MG/ML VIAL IVP ONE (19:45)
--- NOTE | 2018-11-20 19:47 | RADIOLOGY IMAGING REPORT ---
[place] [facility] [place] PATIENT NAME: Terra Gomez : 1975 MR: [id number] V: [id number] EXAM DATE: ORDERING PHYSICIAN: LEDY HOWARD TECHNOLOGIST: Location: [facility] Patient: Terra Gomez : 1975 Visit/Account:[id number] Date of Sevice: 11/20/2018 Examination: CHEST PA LAT Comparison: 07/07/2018 and earlier. History: Chest pain for one day. History of smoking. Findings: No consolidation, nodule, or evidence of acute peribronchial inflammation. No pneumothorax, edema, or effusion. Cardiac and hilar contour size is within normal limits. Osseous structures are i ntact. IMPRESSION: No findings of acute cardiopulmonary disease. Report Dictated By: Marino Vasquez MD at 11/20/2018 7:39 PM Report E-Signed By: Marino Vasquez MD at 11/20/2018 7:44 PM WSN:[id number]
[2018-11-20] MEDS ORDERED: LIDOCAINE 5% PATCH TP SCH (20:25)
[2018-11-20 20:30] VITALS: BP 118/86
[2018-11-20] MEDS ORDERED: PATCH REMOVAL 1 EA TOP SCH (21:00)
== END 2018-11-20 20:42 | disposition home or self-care (01) ==
LOC: ER 17:53
DX: R07.9 Chest pain, unspecified (principal); F17.210 Nicotine dependence, cigarettes, uncomplicated
CPT/HCPCS: 71046; 84484; 85025; 85379; 93005; 96374; 96375; 99284; J1885; J2405; 82040; 82247; 82310; 82374; 82435; 82565; 82947; 84075; 84132; 84155; 84295; 84450; 84460; 84520